=== PATIENT | female | born 1975 | race African-American/Black ===

== ENCOUNTER → 2016-03-27 | Outpatient (CLI) | payer BC, MEDICAID | LOC: RAD 11:27 | PROVIDERS: ATTEND Internal Medicine | DX: R06.02 Shortness of breath (principal); I71.01 Dissection of thoracic aorta | CPT/HCPCS: 71275; 82565 ==

== ENCOUNTER → 2016-03-27 | Outpatient (CLI) | payer BC, MEDICAID ==
[2016-03-27 13:14] LABS: ANION GAP 10 (5-19); BLOOD UREA NITROGEN 11 mg/dL (7-20); CALCIUM 9.6 mg/dL (8.4-10.2); CARBON DIOXIDE 27 mmol/L (22-30); CHLORIDE 107 mmol/L (98-107); CREATININE RESULT 0.64 mg/dL (0.52-1.25); GLUCOSE 86 mg/dL (75-110); POTASSIUM 3.8 mmol/L (3.6-5.0); SODIUM 144.4 mmol/L (137-145)
== END ==
LOC: LAB 12:30
PROVIDERS: ATTEND Internal Medicine
DX: R06.02 Shortness of breath (principal)
CPT/HCPCS: 36415; 80048

== ENCOUNTER → 2016-03-31 | Outpatient (CLI) | payer BC, MEDICAID | LOC: RAD 07:53 | PROVIDERS: ATTEND Surgery Vascular Surgery | DX: R06.02 Shortness of breath (principal); I71.8 Aortic aneurysm of unspecified site, ruptured | CPT/HCPCS: 74174 ==

== ENCOUNTER 2016-07-07 20:21 | Emergency (ER) | payer BC, MEDICAID ==
[2016-07-07] MEDS ORDERED: CLONIDINE HCL 0.2 MG TABLET PO ONE (20:33)
[2016-07-07] MEDS ORDERED: OXYCODONE-ACETAMINOPHEN 5-325 MG TABLET PO ONE (20:33)
--- NOTE | 2016-07-07 20:36 | ER Document Report ---
ED Cardiac - General Chief Complaint: Chest Pain Stated Complaint: CHEST PAIN WITH CARDIAC HISTORY Notes: The patient is a 40-year-old female, past medical history extensive aortic dissection 7 months ago with fenestration of the wall of the dissection at [facility], HTN, anxiety (on nightly Xanax), presents with 2 days of intermittent episodes of left anterior chest pain that is occurring in waves. She says the pain started after she had a bad dream that her dissection returned. She denies back pain, abdominal pain, nausea, vomiting, numbness, tingling, fevers or cough. TRAVEL OUTSIDE OF THE [place] IN LAST 30 DAYS: No - Related Data Allergies/Adverse Reactions: No Known Allergies Allergy (Unverified 01/07/16 14:18) Past Medical History - General Information source: Patient - Social History Smoking Status: Unknown if Ever Smoked Family History: Hypertension - Past Medical History Cardiac Medical History: Reports: Hx Heart Attack, Hx Hypertension Neurological Medical History: Reports: Hx Migraine Renal/ Medical History: Denies: Hx Peritoneal Dialysis GI Medical History: Reports: Hx Gastroesophageal Reflux Disease Past Surgical History: Reports: Hx Cardiac Surgery - aortic dissection repair , Hx Tonsillectomy - Immunizations Hx Diphtheria, Pertussis, Tetanus Vaccination: Yes - unk Review of Systems - Review of Systems Notes: REVIEW OF SYSTEMS: CONSTITUTIONAL: -fevers, -chills EENT: -eye pain, -difficulty swallowing, -nasal congestion CARDIOVASCULAR: +chest pain, -syncope RESPIRATORY: -cough, -SOB GASTROINTESTINAL: -abdominal pain, -nausea, -vomiting, -diarrhea GENITOURINARY: -dysuria, -hematuria MUSCULOSKELETAL: +back pain, -neck pain SKIN: -rash or skin lesions. HEMATOLOGIC: -easy bruising or bleeding. LYMPHATIC: -swollen, enlarged glands. NEUROLOGICAL: -altered mental status or loss of consciousness, -headache, - neurologic symptoms PSYCHIATRIC: -anxiety, -depression. ALL OTHER SYSTEMS REVIEWED AND NEGATIVE. Physical Exam - Vital signs Vitals: Temp Pulse Resp BP Pulse Ox 98.6 F 105 H 24 H 173/94 H 97 07/07/16 20:33 07/07/16 20:33 07/07/16 20:33 07/07/16 20:33 07/07/16 20:33 - Notes Notes: PHYSICAL EXAMINATION: GENERAL: Uncomfortable, in moderate distress HEAD: Atraumatic, normocephalic. EYES: Pupils equal round and reactive to light, extraocular movements intact, sclera anicteric, conjunctiva are normal. ENT: nares patent, oropharynx clear without exudates. Moist mucous membranes. NECK: Normal range of motion, supple without lymphadenopathy LUNGS: Breath sounds clear to auscultation bilaterally and equal. No wheezes rales or rhonchi. HEART: Tachycardic with harsh systolic murmur ABDOMEN: Soft, nontender, normoactive bowel sounds. No guarding, no rebound. No masses appreciated. EXTREMITIES: Normal range of motion, no pitting or edema. No cyanosis. NEUROLOGICAL: Cranial nerves grossly intact. Normal speech, normal gait. Normal sensory, motor, and reflex exams. SKIN: Warm, Dry, normal turgor, no rashes or lesions noted. PSYCH: Very anxious Course - Re-evaluation Re-evalutation: 07/07/16 21:21 Pt seen immediately on arrival to the ER. After IV access obtained, patient taken to CT scan emergently to assess for presence of worsening dissection. Spoke to radiologist and he says that there are no acute changes. Blood pressure obtained in all 4 extremities were similar and she has strong distal pulses in all 4 extremities. After Dilaudid, nitroglycerin, and morphine, patient still feeling chest pain. After Ativan, patient's chest pain completely resolved. She is asymptomatic. EKG does not show an acute ACS event and repeat EKG is unchanged. 2 sets of troponins were negative. Patient has a HEART score 3 (1 for risk factors, 2 for concerning story). CTA does not show PE. Offered patient admission, but she said she would like to go home because she has an appointment and fighting with her thoracic surgeon tomorrow morning. Given strict return precautions and she understands. - Vital Signs Vital signs: Temp Pulse Resp BP Pulse Ox 98.6 F 105 H 24 H 178/99 H 97 07/07/16 20:33 07/07/16 20:33 07/07/16 20:33 07/07/16 21:27 07/07/16 20:33 - Laboratory Result Diagrams: 07/07/16 20:49 07/07/16 21:15 Laboratory results interpreted by me: 07/07/16 07/07/16 20:49 21:15 Seg Neutrophils % 39.9 L Lymphocytes % 47.5 H AST 13 L - Diagnostic Test Radiology reviewed: Image reviewed, Reports reviewed Radiology results interpreted by me: CTA Chest/A/P: No acute findings. - EKG Interpretation by Me EKG shows normal: Sinus rhythm, [place], Intervals, QRS Complexes, ST-T Waves Rate: Normal Critical Care Note - Critical Care Note Total time excluding time spent on procedures (mins): 45 Discharge - Discharge Clinical Impression: Chest pain Qualifiers: Chest pain type: unspecified Qualified Code(s): R07.9 - Chest pain, unspecified Condition: Stable Additional Instructions: Your CAT scan does not show any evidence of a new aortic dissection or blood clots in your lungs. The blood tests looking at your heart and EKG were all normal and do not show any evidence of a heart attack at this time. You must follow-up with your primary care physician tomorrow for further evaluation and treatment. Return to the ER if you notice any worsening pain or any other concerns. CHEST PAIN OF UNCLEAR CAUSE: The exact cause of your chest pain isn't clear. Fortunately, there is no evidence of a dangerous medical condition. Further testing may be required to find the source of the pain. Most often, we find that this pain is coming from the chest wall -- the muscles or rib joints in the chest. But chest pain can come from the lung and lung lining, the esophagus, the heart valves or heart lining, and even the stomach or gallbladder. Rest. Eat lightly until the pain is gone. We may prescribe medicine for pain and inflammation. You should call the physician immediately if the pain radiates to the shoulder, jaw or arms; if you start to run a fever or develop a cough; or if you develop shortness of breath, or other new or alarming symptoms. NORMAL EXAM AND WORKUP: At this time, your examination and workup show no significant abnormality. No significant abnormal physical findings were noted. All laboratory, EKG, and imaging (x-ray, CT scans, ultrasound) studies that were ordered show no significant abnormality. Although your examination and all studies that were ordered showed no significant abnormal finding, there are no examinations and no studies that are 100% accurate. There is always the possibility that some abnormality could exist and not be detected with physical examination or within the limits and capabilities of laboratory and other studies. You should return or follow up as you were instructed on your visit today for further evaluation if your symptoms do not resolve. CHEST WALL PAIN: Your chest pain may be coming from the chest wall. This is often caused by straining the muscles or joints in the chest during physical activity, direct trauma, coughing, or vigorous vomiting. Persons with arthritis are especially prone to this type of pain, due to inflammation of the cartilage joints near the breast bone. Occasionally, no cause can be found. Rest from strenuous physical activity. This kind of chest pain is usually made worse by movement of the chest. Depending on the symptoms, we may prescribe medicine for pain, muscle relaxation, and antiinflammatory effects. If the pain is new, and seems to be due to muscle strain, cold packs can help. Otherwise, apply gentle warmth to the painful area for 15 minutes every hour or two. You should call contact the doctor immediately if things change. Further evaluation is needed if you develop a fever or cough, if the nature of the pain changes, or if you become short of breath. ANGINA EPISODE: Your physician has diagnosed the pain you experienced as an episode of angina. Angina occurs when a portion of the heart muscle temporarily lacks oxygen. It does not cause any permanent heart damage, but serves as a warning. Hospitalization is not necessary now. Evaluation of your cardiac condition , and medical therapy for angina will be necessary. It's important you be sure to keep all appointments and take medication exactly as prescribed. Angina is usually treated with a type of "nitrate" medication. This is available as ointment, pills, or sublingual (under the tongue) tablets. Depending on your clinical situation, other medications may be added to help control angina. These may include beta blockers or calcium blockers. If episodes of angina are occurring with increased frequency, or if chest pain lasts longer than 15 minutes or does not respond to nitroglycerin, you must seek emergency medical care immediately. FOLLOW-UP CARE: If you have been referred to a physician for follow-up care, call the physician s office for an appointment as you were instructed or within the next two days. If you experience worsening or a significant change in your symptoms, notify the physician immediately or return to the Emergency Department at any time for re-evaluation. Anxiety The physician feels that some of your health problems are being caused by anxiety. Anxiety affects your health in many ways. Anxiety alone can cause palpitations, sweats, chest pains, abdominal pains, shortness of breath, and headaches. It contributes to ulcer disease, high blood pressure, irritable bowel syndrome, and has been shown to cause flare-ups of many other diseases. Anxiety is not a simple disorder to treat. If the anxiety is due to recent life stresses, you may simply need time to "work through" the changes. If the anxiety is due to an underlying unhappiness with yourself or due to psychiatric disturbance, professional help will be needed. Your physician can refer you for further help if needed. Anti-anxiety medication is occasionally given if the stress is acute or if you are having trouble sleeping. Chronic or frequent use of these medications is not a good idea because the body becomes reliant on it, preventing you from dealing with life's normal stresses. Forms: Elevated Blood Pressure Referrals: AASHISH BASS MD [Primary Care Provider] - Follow up as needed
--- NOTE | 2016-07-07 20:41 | ER Document Report ---
ED Medical Screen (RME) - General Chief Complaint: Chest Pain Stated Complaint: CHEST PAIN WITH CARDIAC HISTORY Time seen by provider: 20:41 Mode of Arrival: Ambulatory Information source: Patient TRAVEL OUTSIDE OF THE [place] IN LAST 30 DAYS: No - HPI Patient complains to provider of: chest pain, shortness of breath Onset: Other - 2-3 days Onset/Duration: Persistent, Worse Quality of pain: Sharp, Stabbing Severity: Severe Pain Level: 5 Associated Symptoms: Shortness of breath Exacerbated by: Denies Relieved by: Denies Similar symptoms previously: Yes Recently seen / treated by doctor: Yes Notes: 07/07/16 20:41 Patient is a 40-year-old female with a history of aortic dissection in November 2015, who presents to the emergency room complaining of sharp stabbing left-sided chest pain which shortness of breath that started a few days ago and worsened today - Related Data Allergies/Adverse Reactions: No Known Allergies Allergy (Unverified 01/07/16 14:18) Past Medical History - Past Medical History Cardiac Medical History: Reports: Hx Heart Attack, Hx Hypertension Neurological Medical History: Reports: Hx Migraine Renal/ Medical History: Denies: Hx Peritoneal Dialysis GI Medical History: Reports: Hx Gastroesophageal Reflux Disease Past Surgical History: Reports: Hx Cardiac Surgery - aortic dissection repair , Hx Tonsillectomy - Immunizations Hx Diphtheria, Pertussis, Tetanus Vaccination: Yes - unk Physical Exam - Vital signs Vitals: Temp Pulse Resp BP Pulse Ox 98.6 F 105 H 24 H 173/94 H 97 07/07/16 20:33 07/07/16 20:33 07/07/16 20:33 07/07/16 20:33 07/07/16 20:33 Course - Vital Signs Vital signs: Temp Pulse Resp BP Pulse Ox 98.6 F 105 H 24 H 173/94 H 97 07/07/16 20:33 07/07/16 20:33 07/07/16 20:33 07/07/16 20:33 07/07/16 20:33
[2016-07-07] MEDS ORDERED: HYDROMORPHONE HCL INJ/PF 2 MG/ML AMPULE IV ONE (20:42)
[2016-07-07 20:59] LABS: ABSOLUTE EOSINOPHILS # (AUTO) 0.2 10^3/uL (0.0-0.6); ABSOLUTE LYMPHOCYTES (AUTO) 3.5 10^3/uL (0.5-4.7); ABSOLUTE MONOCYTES (AUTO) 0.7 10^3/uL (0.1-1.4); ABSOLUTE NEUT (AUTO) 2.9 10^3/uL (1.7-8.2); BASOPHILS % (AUTO) 0.6 % (0-2); EOSINOPHILS % (AUTO) 2.6 % (0-6); HEMATOCRIT 41.6 % (36.0-47.0); HEMOGLOBIN 14.3 g/dL (12.0-15.5); HGB HCT DIFFERENCE 1.3; LYMPHOCYTES % (AUTO) 47.5 % (13-45); MEAN CORPUSCULAR HEMOGLOBIN 30.1 pg (27.0-33.4); MEAN CORPUSCULAR HGB CONC 34.3 g/dL (32.0-36.0); MEAN CORPUSCULAR VOLUME 88 fl (80-97); MONOCYTES % (AUTO) 9.4 % (3-13); RED BLOOD COUNT 4.74 10^6/uL (3.72-5.28); RED CELL DISTRIBUTION WIDTH 13.9 % (11.5-14.0); SEGMENTED NEUTROPHILS % (AUTO) 39.9 % (42-78); WHITE BLOOD COUNT 7.3 10^3/uL (4.0-10.5)
[2016-07-07] MEDS ORDERED: NITROGLYCERIN 0.4 MG/TAB 25 TAB/BOTTLE ONE (21:09)
[2016-07-07] MEDS ORDERED: NITROGLYCERIN 0.4 MG/TAB 25 TAB/BOTTLE SL PRN (21:09)
[2016-07-07] MEDS ORDERED: MORPHINE SULFATE 10 MG/ML INJ IV ONE (21:31)
[2016-07-07 21:41] LABS: ALANINE AMINOTRANSFERASE 24 U/L (9-52); ALBUMIN 3.9 g/dL (3.5-5.0); ALKALINE PHOSPHATASE 63 U/L (38-126); ANION GAP 11 (5-19); ASPARTATE AMINO TRANSFERASE 13 U/L (14-36); BILIRUBIN,DIRECT 0.1 mg/dL (0.0-0.4); BILIRUBIN,TOTAL 0.3 mg/dL (0.2-1.3); BLOOD UREA NITROGEN 13 mg/dL (7-20); CARBON DIOXIDE 25 mmol/L (22-30); CHLORIDE 105 mmol/L (98-107); CREATINE KINASE 44 U/L (30-135); CREATININE RESULT 0.57 mg/dL (0.52-1.25); GLUCOSE 109 mg/dL (75-110); POTASSIUM 3.7 mmol/L (3.6-5.0); SODIUM 140.8 mmol/L (137-145); TOTAL PROTEIN 6.6 g/dL (6.3-8.2)
[2016-07-07 21:52] LABS: CREATINE KINASE MB < 0.22 ng/mL (<4.55); TROPONIN I < 0.012 ng/mL
[2016-07-07] MEDS ORDERED: LORAZEPAM INJ 2 MG/1 ML VIAL IV ONE (21:59)
[2016-07-08 00:32] VITALS: BP 123/76
--- NOTE | 2016-07-08 08:30 | EKG REPORT ---
SEVERITY:- ABNORMAL ECG - SINUS RHYTHM LEFT ATRIAL ABNORMALITY LEFT VENTRICULAR HYPERTROPHY BORDERLINE PROLONGED QT INTERVAL : Confirmed by: Henrietta Ross MD 08-Jul-2016 08:30:01
--- NOTE | 2016-07-08 08:30 | EKG REPORT ---
SEVERITY:- ABNORMAL ECG - SINUS RHYTHM LEFT ATRIAL ABNORMALITY : Confirmed by: Henrietta Ross MD 08-Jul-2016 08:30:07
== END 2016-07-08 00:41 | disposition home or self-care (01) ==
LOC: ER 20:21
DX: I71.01 Dissection of thoracic aorta (principal); R07.9 Chest pain, unspecified; R06.02 Shortness of breath; R00.0 Tachycardia, unspecified; I10 Essential (primary) hypertension; I25.2 Old myocardial infarction; F41.9 Anxiety disorder, unspecified; Z79.899 Other long term (current) drug therapy; Z98.890 Other specified postprocedural states
CPT/HCPCS: 93005; 99291; 96374; 96375; 36415; 82553; 82550; 85025; 80053; 84484; 71275; 74174; 93010; J2270; J1170; J2060

== ENCOUNTER 2016-08-26 11:26 | Emergency (ER) | payer BC ==
--- NOTE | 2016-08-26 11:49 | ER Document Report ---
ED Syncope and Near Syncope - General Chief Complaint: Passed Out Prior to Arrival Stated Complaint: POSSIBLE SYNCOPE Time Seen by Provider: 08/26/16 11:44 Mode of Arrival: Medic Information source: Patient, Emergency Med Personnel Notes: This is a 40-year-old female with aortic dissection repair December 2015 at [facility] who presents with syncopal episode. She states she had a generalized bad feeling all over developed nausea and diaphoresis then passed out. Denies any injury. No recent medication changes. Reports chest pain though tells me she always has chest pain that never completely goes away. Denies presyncopal palpitations or other symptoms otherwise. No recent illness, fever, cough or cold symptoms. Denies dysuria. Continues with nausea at this point. TRAVEL OUTSIDE OF THE [place] IN LAST 30 DAYS: No - Related Data Allergies/Adverse Reactions: No Known Allergies Allergy (Verified 08/26/16 11:58) Past Medical History - Social History Smoking Status: Never Smoker Family History: Hypertension, Other - Aortic aneurysm Patient has suicidal ideation: No Patient has homicidal ideation: No - Past Medical History Cardiac Medical History: Reports: Hx Heart Attack, Hx Hypertension Neurological Medical History: Reports: Hx Migraine Renal/ Medical History: Denies: Hx Peritoneal Dialysis GI Medical History: Reports: Hx Gastroesophageal Reflux Disease Past Surgical History: Reports: Hx Cardiac Surgery - aortic dissection repair , Hx Tonsillectomy - Immunizations Hx Diphtheria, Pertussis, Tetanus Vaccination: Yes - unk Review of Systems - Review of Systems -: Yes All other systems reviewed and negative Physical Exam - Vital signs Vitals: Temp 98.5 F 08/26/16 11:34 Interpretation: Hypertensive - Notes Notes: Physical Exam: GENERAL: VS as per nursing doc. Well-appearing, well-nourished and in no acute distress. HEAD: Atraumatic, normocephalic. EYES: Pupils equal round and reactive to light, extraocular movements intact, sclera anicteric, no conjunctival injection or discharge. ENT: Nares patent, oropharynx clear without exudates. Moist mucous membranes. NECK: Normal range of motion, supple without lymphadenopathy. LUNGS: Breath sounds clear to auscultation bilaterally and equal. No wheezes rales or rhonchi. HEART: Normal S1S2. Regular rate and rhythm with murmur noted radiating to the carotids more on the right. Equal peripheral pulses. ABDOMEN: Soft, non-tender EXTREMITIES: Normal range of motion. No calf tenderness. Negative [place] NEUROLOGICAL: Cranial nerves grossly intact. Normal speech. Normal sensory and motor exams. No gross cerebellar abnormalities. PSYCH: Normal mood, normal affect. SKIN: Warm, dry, no cyanosis, no splinter hemorrhages. Cap refill < 2 sec. Course - Re-evaluation Re-evalutation: 08/26/16 15:45 Discussed findings and diagnostic studies up to this point with the patient. She has a headache so we will treat her symptoms. They have been having difficulty obtaining IV for the CTA. We will continue attempting with ultrasound. She appears in no distress during my discussion. 08/26/16 18:14 President Tres Rodriguez [facility] 08/26/16 19:32 Patient continues to complain of headache. This seems somewhat unusual for her so we will go on and complete a CT scan of her head. She requests to follow-up with her judo teacher via transfer today. I spoke with Dr. Hooper with vascular surgery at [facility] and discussed the CT scan. He did not think that was significant. She had just seen his partner yesterday who recommended further cardiac evaluation. 08/26/16 19:37 Discussed patient's wish to be transferred to [facility] where her judo teacher is located. 19:42 discussed with the hospitalist Dr. Hernandez. He is not aware of Dr. Hoover being a judo teacher associated with [facility] 19:[address] Palmer here. He is unaware of Dr. Hoover as well. 19:55 I spoke with [facility] transfer center.they were initially care of Dr. Hoover but we found him in a [facility] Internet directory. I spoke with Dr. Hernandez who will accept the patient. She is #1 on the wait list and they will admit the patient when a bed becomes available. Head CT and repeat troponin are pending. 08/26/16 20:17 The patient had requested to go where her judo teacher is. He had done her last echocardiogram and they were discussing coronary angiography as well. CT of the head is pending at this point a repeat troponin as well. Patient requested transfer despite a risk and benefit discussion understanding we have services here that could provide cardiac evaluation further for her. 08/27/16 15:39 I reevaluated the patient and her headache has resolved. Her head CT was negative as well as her repeat troponin. She is feeling back to baseline at this point. A bed had not become available. She no longer wants transfer and wants discharge. I spoke with Dr. Hoover and he will see her tomorrow at 4 PM here at the [place] office. 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 She understands risks and will follow-up tomorrow without fail. - Vital Signs Vital signs: Temp Pulse Resp BP Pulse Ox 98.0 F 61 21 H 148/87 H 95 08/27/16 12:39 08/26/16 12:44 08/27/16 15:01 08/27/16 15:01 08/27/16 15:01 - Laboratory Result Diagrams: 08/26/16 13:47 08/26/16 13:47 Laboratory results interpreted by me: 08/26/16 13:47 AST 12 L - Diagnostic Test Radiology reviewed: Image reviewed, Reports reviewed - NAD - EKG Interpretation by Me EKG shows normal: Sinus rhythm Rate: Bradycardia - Rate 59 sinus bradycardia with possible left atrial enlargement, No clear ischemia, Discharge - Discharge Clinical Impression: Syncope and collapse, Chest pain, History of aortic dissection Condition: Fair Disposition: [facility] Additional Instructions: Return for worsening or concern. Follow-up tomorrow with Dr. Hoover at 4 PM without fail. Referrals: AASHISH BASS MD [Primary Care Provider] - Follow up as needed TRES HOOVER MD [[facility]] - Follow up tomorrow (Tomorrow at 4pm )
[2016-08-26] MEDS ORDERED: ONDANSETRON HCL INJ/PF 4 MG/2 ML SDV IV ONE ×2 (11:51→15:41)
[2016-08-26] MEDS ORDERED: NORMAL SALINE 1000 ML 500 ML IV ONE (11:51)
--- NOTE | 2016-08-26 12:34 | RADIOLOGY REPORT (SQ) ---
EXAM DESCRIPTION: CHEST SINGLE VIEW COMPLETED DATE/TIME: 08/26/2016 12:22 pm REASON FOR STUDY: Syncope, CP COMPARISON: 01/24/2016 EXAM PARAMETERS: NUMBER OF VIEWS: One view. TECHNIQUE: Single frontal radiographic view of the chest acquired. RADIATION DOSE: NA LIMITATIONS: None. FINDINGS: LUNGS AND PLEURA: No opacities, masses or pneumothorax. No pleural effusion. MEDIASTINUM AND HILAR STRUCTURES: No masses. Contour normal. HEART AND VASCULAR STRUCTURES: Heart normal in size. Normal vasculature. BONES: No acute findings. HARDWARE: Sternotomy wires OTHER: No other significant finding. IMPRESSION: NO ACUTE RADIOGRAPHIC FINDING IN THE CHEST. TECHNICAL DOCUMENTATION: JOB ID: [id number]
[2016-08-26 13:56] LABS: ABSOLUTE EOSINOPHILS # (AUTO) 0.1 10^3/uL (0.0-0.6); ABSOLUTE LYMPHOCYTES (AUTO) 1.8 10^3/uL (0.5-4.7); ABSOLUTE MONOCYTES (AUTO) 0.4 10^3/uL (0.1-1.4); ABSOLUTE NEUT (AUTO) 2.8 10^3/uL (1.7-8.2); BASOPHILS % (AUTO) 0.5 % (0-2); EOSINOPHILS % (AUTO) 1.7 % (0-6); HEMATOCRIT 44.6 % (36.0-47.0); HEMOGLOBIN 14.8 g/dL (12.0-15.5); HGB HCT DIFFERENCE -0.2; LYMPHOCYTES % (AUTO) 34.9 % (13-45); MEAN CORPUSCULAR HEMOGLOBIN 29.3 pg (27.0-33.4); MEAN CORPUSCULAR HGB CONC 33.1 g/dL (32.0-36.0); MEAN CORPUSCULAR VOLUME 89 fl (80-97); MONOCYTES % (AUTO) 8.4 % (3-13); RED BLOOD COUNT 5.04 10^6/uL (3.72-5.28); RED CELL DISTRIBUTION WIDTH 13.4 % (11.5-14.0); SEGMENTED NEUTROPHILS % (AUTO) 54.5 % (42-78); WHITE BLOOD COUNT 5.1 10^3/uL (4.0-10.5)
[2016-08-26 14:03] LABS: PROTHROMBIN TIME 13.3 SEC (11.4-15.4)
[2016-08-26 14:17] LABS: ALANINE AMINOTRANSFERASE 27 U/L (9-52); ALBUMIN 4.3 g/dL (3.5-5.0); ALKALINE PHOSPHATASE 82 U/L (38-126); ANION GAP 12 (5-19); ASPARTATE AMINO TRANSFERASE 12 U/L (14-36); BILIRUBIN,DIRECT 0.2 mg/dL (0.0-0.4); BILIRUBIN,TOTAL 0.6 mg/dL (0.2-1.3); BLOOD UREA NITROGEN 15 mg/dL (7-20); CALCIUM 9.1 mg/dL (8.4-10.2); CARBON DIOXIDE 24 mmol/L (22-30); CHLORIDE 105 mmol/L (98-107); CREATINE KINASE 50 U/L (30-135); CREATININE RESULT 0.63 mg/dL (0.52-1.25); GLUCOSE 93 mg/dL (75-110); SODIUM 141.1 mmol/L (137-145); TOTAL PROTEIN 7.7 g/dL (6.3-8.2)
[2016-08-26 14:31] LABS: CREATINE KINASE MB < 0.22 ng/mL (<4.55); TROPONIN I < 0.012 ng/mL
[2016-08-26] MEDS ORDERED: MORPHINE SULFATE 10 MG/ML INJ IV ONE (15:41)
--- NOTE | 2016-08-26 16:19 | EKG REPORT ---
SEVERITY:- ABNORMAL ECG - SINUS RHYTHM LEFT ATRIAL ABNORMALITY : Confirmed by: Henrietta Ross MD 26-Aug-2016 16:18:55
[2016-08-26] MEDS ORDERED: HYDROCODONE/ACETAMINOPHEN 5-325 MG TABLET PO ONE (17:31)
--- NOTE | 2016-08-26 18:45 | RADIOLOGY REPORT (SQ) ---
EXAM DESCRIPTION: CTA CHEST COMPLETED DATE/TIME: 08/26/2016 6:18 pm REASON FOR STUDY: Eval dissection/CP/GFR Pending COMPARISON: July 07 2016 TECHNIQUE: CT scan of the chest performed using helical scanning technique with dynamic intravenous contrast injection. Images reviewed with lung, soft tissue and bone windows. Reconstructed coronal and sagittal MPR images reviewed. Additional 3 dimensional post-processing performed to develop Maximal Intensity Projection images (VA P). All images stored on PACS. All CT scanners at this facility use dose modulation, iterative reconstruction, and/or weight based d osing when appropriate to reduce radiation dose to as low as reasonably achievable (ALARA). [facility]: Dose Right [facility]: CareDose [facility]: Dose Right [facility]: Teradose 4D [facility]: [employer] CONTRAST TYPE AND DOSE: 76 mL Isovue 370- low osmolar. RENAL FUNCTION: Creatinine 0.6 BUN 15 RADIATION DOSE: 42.95 mGy. LIMITATIONS: The aorta is not optimally opacified. FINDINGS: LUNGS AND PLEURA: No masses, infiltrates, pneumothorax. No pleural effusions, calcificati ons. AORTA AND GREAT VESSELS: There is an aneurysm of the aorta that begins at the brachiocephalic trunk a nd extends through the descending aorta into the abdomen. A very small opacified residual lumen is p resent in the descending aorta, smaller than on the prior study. The largest portion of the head [place] cending aorta is poorly opacified. In the upper abdomen, there is improved opacification in this seg ment of the aorta, possibly from below. HEART: No pericardial effusion. PULMONARY ARTERIES: No emboli visualized in the main pulmonary arteries or the segmental branches. HILAR AND MEDIASTINAL STRUCTURES: No identified masses or abnormal nodes. HARDWARE: None in the chest. UPPER ABDOMEN: The celiac artery and left renal artery appear to arise from the more poorly opacified segment of the aorta, or false lumen. The superior mesenteric artery and the right renal artery sha se from the better opacified segment of aorta, or true lumen. THYROID AND OTHER SOFT TISSUES: No masses. No adenopathy. BONES: No acute or significant finding. 3D MIPS: Confirm above findings. OTHER: No other significant finding. IMPRESSION: Aortic dissection as described. The true lumen is significantly narrower than on earlie r study. Origins of the abdominal arteries as described. TECHNICAL DOCUMENTATION: JOB ID: [id number] Quality ID # [id number]: Final reports with documentation of one or more dose reduction techniques (e.g., Au tomated exposure control, adjustment of the mA and/or kV according to patient size, use of iterative reconstruction technique) 2010 [email or web address]- All Rights Reserved
[2016-08-26] MEDS ORDERED: HYDROMORPHONE HCL INJ/PF 2 MG/ML AMPULE IV ONE (19:31)
--- NOTE | 2016-08-26 20:53 | RADIOLOGY REPORT (SQ) ---
EXAM DESCRIPTION: CT HEAD WITHOUT COMPLETED DATE/TIME: 08/26/2016 8:19 pm REASON FOR STUDY: DAILEY COMPARISON: None. TECHNIQUE: Axial images acquired through the brain without intravenous contrast. Images reviewed wi th bone, brain and subdural windows. Images stored on PACS. All CT scanners at this facility use dose modulation, iterative reconstruction, and/or weight based d osing when appropriate to reduce radiation dose to as low as reasonably achievable (ALARA). [facility]: Dose Right [facility]: CareDose [facility]: Dose Right [facility]: Teradose 4D [facility]: [employer] RADIATION DOSE: 64.61 mGy. LIMITATIONS: None. FINDINGS: VENTRICLES: Normal size and contour. CEREBRUM: No masses. No hemorrhage. No midline shift. Normal al/white matter differentiation. N o evidence for acute infarction. CEREBELLUM: No masses. No hemorrhage. No alteration of density. No evidence for acute infarction. EXTRAAXIAL SPACES: No fluid collections. No masses. ORBITS AND GLOBE: No intra- or extraconal masses. Normal contour of globe without masses. CALVARIUM: No fracture. PARANASAL SINUSES: No fluid or mucosal thickening. SOFT TISSUES: No mass or hematoma. OTHER: No other significant finding. IMPRESSION: No acute intracranial findings. TECHNICAL DOCUMENTATION: JOB ID: [id number] Quality ID # [id number]: Final reports with documentation of one or more dose reduction techniques (e.g., Au tomated exposure control, adjustment of the mA and/or kV according to patient size, use of iterative reconstruction technique) 2010 [employer]- All Rights Reserved
[2016-08-27] MEDS ORDERED: PROCHLORPERAZINE EDISYLATE INJ 10 MG/2 ML VIAL IV ONE (00:41)
[2016-08-27] MEDS ORDERED: DIPHENHYDRAMINE HCL 50 MG/ML VIAL IV ONE (00:41)
--- NOTE | 2016-08-27 06:30 | ER Document Report ---
Doctor's Note Notes: 08/27/16 06:28 Patient signed out to me at [address] Alas pending transfer. Dr. Carrillo had initially seen and evaluated the patient with chest pain he did a CTA of the chest which showed an aneurysm of the aorta that begins at the brachiocephalic trunk and extends to the descending aorta into the abdomen with an impression of aortic dissection so spoke with the receiving facility where she also has her supervisor concrete stone fabricating care. She spoke with a thoracic surgeon there and stated that they did not need to be immediately transferred for emergent surgery however the patient was accepted by their facility and her supervisor concrete stone fabricating. I examined her this morning her vital signs are stable with a blood pressure 159/79 heart rate of 80 respiratory rate of 2197% on room air. She is awake alert talkative in no acute distress heart rate and rhythm is regular lungs clear to station bilaterally no wheezes rales rhonchi abdomen soft no tenderness guarding rebound or rigidity. Her EKG showed reviewed shows sinus rhythm at 59 bpm with no acute ST segment elevation or depression. I am obtaining an additional EKG and troponin level.
--- NOTE | 2016-08-27 12:48 | ER Document Report ---
Doctor's Note Notes: 08/27/16 12:48 Asked nursing information systems coordinator to call and check on bed status at [facility] received a phone call back from Dr. Hoover her quality technician fiberglass up there. He states he knows the patient very well she has chronic chest pain he is reading her CT scan and she has a chronic dissection as well his only concern is that it same the lumen is narrow. At this point he is going to contact the cardiothoracic surgeon and call me back. Has persistent stable vital signs.
[2016-08-27 16:00] VITALS: BP 146/99
== END 2016-08-27 16:01 | disposition short-term general hospital (02) ==
LOC: ER 11:26
DX: I71.03 Dissection of thoracoabdominal aorta (principal); R07.9 Chest pain, unspecified; R51 Headache; R55 Syncope and collapse; R11.0 Nausea; R00.1 Bradycardia, unspecified; I25.2 Old myocardial infarction; I10 Essential (primary) hypertension; Z98.890 Other specified postprocedural states; Z82.49 Family history of ischemic heart disease and other diseases of the circulatory system
CPT/HCPCS: 93005; 96376; 99285; 96361; 96374; 96375; 36415; 82553; 82550; 85025; 85610; 80053; 84484; 71010; 70450; 71275; 93010; J1200; J2270; J1170; J0780; J2405; J7030

== ENCOUNTER 2017-01-18 16:25 | Emergency (ER) | payer BC ==
--- NOTE | 2017-01-18 17:35 | ER Document Report ---
ED Medical Screen (RME) - General Chief Complaint: Lower Abdominal Pain Stated Complaint: ABDOMINAL PAIN Time Seen by Provider: 01/18/17 17:32 Notes: Patient states she had a aortic dissection repaired at [facility] last year. States for 1 week she has been having abdominal pain that radiates into her lower back. She states that it started after gagging but has not gone away. She denies any other significant symptoms. She states she called her surgeon's today at [facility] and the instructed to come to the emergency department. TRAVEL OUTSIDE OF THE [place] IN LAST 30 DAYS: No - Related Data Allergies/Adverse Reactions: No Known Allergies Allergy (Verified 01/18/17 16:59) Past Medical History - Past Medical History Cardiac Medical History: Reports: Hx Heart Attack, Hx Hypertension Neurological Medical History: Reports: Hx Migraine Renal/ Medical History: Denies: Hx Peritoneal Dialysis GI Medical History: Reports: Hx Gastroesophageal Reflux Disease Past Surgical History: Reports: Hx Cardiac Surgery - aortic dissection repair , Hx Tonsillectomy - Immunizations Hx Diphtheria, Pertussis, Tetanus Vaccination: Yes - unk Physical Exam - Vital signs Vitals: Temp Pulse Resp BP Pulse Ox 98.5 F 65 18 149/73 H 97 01/18/17 16:57 01/18/17 16:57 01/18/17 16:57 01/18/17 16:57 01/18/17 16:57 Course - Vital Signs Vital signs: Temp Pulse Resp BP Pulse Ox 98.5 F 66 18 149/73 H 96 01/18/17 16:59 01/18/17 16:59 01/18/17 16:59 01/18/17 16:59 01/18/17 16:59
[2017-01-18 18:29] LABS: APPEARANCE,URINE SLIGHTLY-CLOUDY; BILIRUBIN,URINE NEGATIVE (NEGATIVE); GLUCOSE, URINE NEGATIVE (NEGATIVE); KETONES,URINE NEGATIVE (NEGATIVE); LEUKOCYTE ESTERASE,URINE NEGATIVE (NEGATIVE); NITRITE,URINE NEGATIVE (NEGATIVE); PROTEIN,URINE NEGATIVE (NEGATIVE); URINE SPECIFIC GRAVITY 1.021
[2017-01-18 18:44] LABS: ABSOLUTE EOSINOPHILS # (AUTO) 0.2 10^3/uL (0.0-0.6); ABSOLUTE MONOCYTES (AUTO) 0.6 10^3/uL (0.1-1.4); ABSOLUTE NEUT (AUTO) 2.4 10^3/uL (1.7-8.2); BASOPHILS % (AUTO) 0.6 % (0-2); EOSINOPHILS % (AUTO) 2.8 % (0-6); HEMATOCRIT 43.3 % (36.0-47.0); HEMOGLOBIN 14.8 g/dL (12.0-15.5); HGB HCT DIFFERENCE 1.1; LYMPHOCYTES % (AUTO) 48.1 % (13-45); MEAN CORPUSCULAR HEMOGLOBIN 30.4 pg (27.0-33.4); MEAN CORPUSCULAR HGB CONC 34.2 g/dL (32.0-36.0); MEAN CORPUSCULAR VOLUME 89 fl (80-97); MONOCYTES % (AUTO) 10.2 % (3-13); RED BLOOD COUNT 4.87 10^6/uL (3.72-5.28); RED CELL DISTRIBUTION WIDTH 13.9 % (11.5-14.0); SEGMENTED NEUTROPHILS % (AUTO) 38.3 % (42-78); WHITE BLOOD COUNT 6.3 10^3/uL (4.0-10.5)
[2017-01-18 19:04] LABS: ALANINE AMINOTRANSFERASE 23 U/L (9-52); ALBUMIN 4.7 g/dL (3.5-5.0); ALKALINE PHOSPHATASE 75 U/L (38-126); ANION GAP 13 (5-19); ASPARTATE AMINO TRANSFERASE 20 U/L (14-36); BILIRUBIN,DIRECT 0.3 mg/dL (0.0-0.4); BILIRUBIN,TOTAL 0.4 mg/dL (0.2-1.3); BLOOD UREA NITROGEN 17 mg/dL (7-20); CALCIUM 9.2 mg/dL (8.4-10.2); CARBON DIOXIDE 23 mmol/L (22-30); CHLORIDE 108 mmol/L (98-107); CREATININE RESULT 0.66 mg/dL (0.52-1.25); GLUCOSE 90 mg/dL (75-110); SODIUM 143.9 mmol/L (137-145); TOTAL PROTEIN 8.3 g/dL (6.3-8.2)
[2017-01-18] MEDS ORDERED: OXYCODONE-ACETAMINOPHEN 5-325 MG TABLET PO ONE (19:31)
--- NOTE | 2017-01-18 20:17 | ER Document Report ---
ED GI/ - General Chief Complaint: Lower Abdominal Pain Stated Complaint: ABDOMINAL PAIN Time Seen by Provider: 01/18/17 17:32 Mode of Arrival: Ambulatory Information source: Patient Notes: Patient presents complaining of left lower quadrant pain that radiates to her lower back for the past week. Patient states that a week ago she was brushing her teeth, gagged and then developed this left lower pelvic pain. Patient denies any urinary symptoms, nausea, vomiting or diarrhea. Patient denies any vaginal bleeding or discharge. Last bowel movement was Wednesday. Patient does report a history of aortic dissection and was concerned about this today. Patient denies any chest pain, lightheadedness. TRAVEL OUTSIDE OF THE [place] IN LAST 30 DAYS: No - HPI Patient complains to provider of: Pelvic pain. No: Diarrhea Onset: Last week Timing/Duration: Persistent Quality of pain: Sharp Pain Level: 4 Location: LLQ, Left flank Vaginal bleeding (Compared to normal period): None Associated symptoms: denies: Chest pain, Dizzy, Dysuria, Fever, Loss of appetite , Nausea, Urinary hesitancy, Urinary frequency, Urinary retention, Vaginal discharge, Vomiting Exacerbated by: Denies Relieved by: Denies Similar symptoms previously: No Recently seen / treated by doctor: No - Related Data Allergies/Adverse Reactions: No Known Allergies Allergy (Verified 01/18/17 16:59) Past Medical History - General Information source: Patient - Social History Smoking Status: Never Smoker Frequency of alcohol use: Occasional Drug Abuse: None Occupation: assistant property manager Family History: Hypertension, Other - Aortic dissection Patient has suicidal ideation: No Patient has homicidal ideation: No - Past Medical History Cardiac Medical History: Reports: Hx Heart Attack, Hx Hypertension Neurological Medical History: Reports: Hx Migraine Renal/ Medical History: Denies: Hx Peritoneal Dialysis GI Medical History: Reports: Hx Gastroesophageal Reflux Disease Past Surgical History: Reports: Hx Cardiac Surgery - aortic dissection repair , Hx Tonsillectomy - Immunizations Hx Diphtheria, Pertussis, Tetanus Vaccination: Yes - unk Review of Systems - Review of Systems Constitutional: No symptoms reported. denies: Fever, Recent illness EENT: No symptoms reported Cardiovascular: No symptoms reported. denies: Chest pain, Dizziness, Lightheaded Respiratory: No symptoms reported. denies: Cough, Short of breath Gastrointestinal: Abdominal pain. denies: Diarrhea, Nausea, Vomiting Genitourinary: Flank pain. denies: Dysuria Female Genitourinary: No symptoms reported Musculoskeletal: Back pain Skin: No symptoms reported Hematologic/Lymphatic: No symptoms reported Neurological/Psychological: No symptoms reported Physical Exam - Vital signs Vitals: Temp Pulse Resp BP Pulse Ox 98.5 F 65 18 149/73 H 97 01/18/17 16:57 01/18/17 16:57 01/18/17 16:57 01/18/17 16:57 01/18/17 16:57 - General General appearance: Appears well, Alert In distress: None - HEENT Head: Normocephalic Conjunctiva: Normal Nasal: Normal Mouth/Lips: Normal Mucous membranes: Normal Neck: Normal, Supple. No: Lymphadenopathy - Respiratory Respiratory status: No respiratory distress Chest status: Nontender Breath sounds: Normal. No: Rales, Rhonchi, Stridor, Wheezing Chest palpation: Normal - Cardiovascular Rhythm: Regular Heart sounds: S1 appreciated, S2 appreciated Murmur: No Pulses: Normal: Radial, Dorsalis pedis - Abdominal Inspection: Normal Distension: No distension Bowel sounds: Normal Tenderness: Tender - left lower pelvic. No: Guarding, Rebound Organomegaly: No organomegaly. No: Mass - Genitourinary External exam: Normal Speculum exam: Cervix closed, Vaginal discharge Vaginal bleeding: None Bimanuel exam: Adnexal tenderness - left - Back Back: Normal, Tender - lower lumbar paraspinal tenderness. No: CVA tenderness, Vertebra tenderness - Extremities General upper extremity: Normal inspection, Nontender, Normal ROM General lower extremity: Normal inspection, Nontender, Normal ROM - Neurological Neuro grossly intact: Yes Cognition: Normal Orientation: AAOx4 Aj Coma Scale Eye Opening: Spontaneous Aj Coma Scale Verbal: Oriented Aj Coma Scale Motor: Obeys Commands Aj Coma Scale Total: 15 - Psychological Associated symptoms: Normal affect, Normal mood - Skin Skin Temperature: Warm Skin Moisture: Dry Skin Color: Normal Course - Re-evaluation Re-evalutation: 01/18/17 22:[address] findings. Patient complains of continued pain and requesting additional medicine. Patient has been eating and drinking. Patient advised that she needs to not have anything additional to eat. 01/19/17 00:07 Reviewed patient's diagnostic tests with her and discussed worsening symptoms that patient should return immediately for. Patient without any evidence concerning for torsion or TOA. No concern for aortic dissection. Patient looks comfortable on examination. Patient tolerating oral fluids without emesis. - Vital Signs Vital signs: Temp Pulse Resp BP Pulse Ox 98.3 F 77 18 148/82 H 98 01/18/17 22:13 01/19/17 00:43 01/19/17 00:43 01/19/17 00:43 01/19/17 00:43 - Laboratory Result Diagrams: 01/18/17 18:25 01/18/17 18:25 Laboratory results interpreted by me: 01/18/17 01/18/17 01/18/17 18:10 18:25 18:25 Seg Neutrophils % 38.3 L Lymphocytes % 48.1 H Chloride 108 H Total Protein 8.3 H Urine Urobilinogen 2.0 H 01/19/17 00:07 Labs- Entire Visit 01/18/17 01/18/17 01/18/17 18:10 18:25 18:25 WBC 6.3 RBC 4.87 Hgb 14.8 Hct 43.3 MCV 89 MCH 30.4 MCHC 34.2 RDW 13.9 Plt Count 262 Seg Neutrophils % 38.3 L Lymphocytes % 48.1 H Monocytes % 10.2 Eosinophils % 2.8 Basophils % 0.6 Absolute Neutrophils 2.4 Absolute Lymphocytes 3.0 Absolute Monocytes 0.6 Absolute Eosinophils 0.2 Absolute Basophils 0.0 Sodium 143.9 Potassium 4.0 Chloride 108 H Carbon Dioxide 23 Anion Gap 13 BUN 17 Creatinine 0.66 Est GFR ( Amer) > 60 Est GFR (Non-Af Amer) > 60 Glucose 90 Calcium 9.2 Total Bilirubin 0.4 Direct Bilirubin 0.3 Indirect Bilirubin Not Reportable Neonat Total Bilirubin Not Reportable AST 20 ALT 23 Alkaline Phosphatase 75 Total Protein 8.3 H Albumin 4.7 Urine Color YELLOW Urine Appearance SLIGHTLY-CLOUDY Urine pH 6.0 Ur Specific [place] 1.021 Urine Protein NEGATIVE Urine Glucose (UA) NEGATIVE Urine Ketones NEGATIVE Urine Blood NEGATIVE Urine Nitrite NEGATIVE Urine Bilirubin NEGATIVE Urine Urobilinogen 2.0 H Ur Leukocyte Esterase NEGATIVE Urine WBC (Auto) 1 Urine RBC (Auto) 1 Squamous Epi Cells Auto 2 Urine Mucus (Auto) RARE Urine Ascorbic Acid NEGATIVE Urine HCG, Qual NEGATIVE Trichomonas (Wet Prep) Vaginal WBC Vaginal Yeast Chlamydia DNA (PCR) N.gonorrhoeae DNA (PCR) 01/18/17 01/18/17 20:15 20:15 WBC RBC Hgb Hct MCV MCH MCHC RDW Plt Count Seg Neutrophils % Lymphocytes % Monocytes % Eosinophils % Basophils % Absolute Neutrophils Absolute Lymphocytes Absolute Monocytes Absolute Eosinophils Absolute Basophils Sodium Potassium Chloride Carbon Dioxide Anion Gap BUN Creatinine Est GFR ( Amer) Est GFR (Non-Af Amer) Glucose Calcium Total Bilirubin Direct Bilirubin Indirect Bilirubin Neonat Total Bilirubin AST ALT Alkaline Phosphatase Total Protein Albumin Urine Color Urine Appearance Urine pH Ur Specific [place] Urine Protein Urine Glucose (UA) Urine Ketones Urine Blood Urine Nitrite Urine Bilirubin Urine Urobilinogen Ur Leukocyte Esterase Urine WBC (Auto) Urine RBC (Auto) Squamous Epi Cells Auto Urine Mucus (Auto) Urine Ascorbic Acid Urine HCG, Qual Trichomonas (Wet Prep) NO TRICHOMONAS SEEN Vaginal WBC RARE WBCS SEEN Vaginal Yeast NO YEAST SEEN Chlamydia DNA (PCR) NOT DETECTED N.gonorrhoeae DNA (PCR) NOT DETECTED - Diagnostic Test Radiology reviewed: Reports reviewed Discharge - Discharge Clinical Impression: Hx of essential hypertension, Pelvic pain Ovarian cyst Qualifiers: Laterality: left Qualified Code(s): N83.202 - Unspecified ovarian cyst, left side Condition: Stable Disposition: HOME, SELF-CARE Instructions: Oral Narcotic Medication ([facility]), Ovarian Cyst ([facility]) Additional Instructions: Return immediately for any new or worsening symptoms Followup with your primary care provider, call tomorrow to make a followup appointment Follow-up with your micropaleontologist for further evaluation Prescriptions: Oxycodone HCl/Acetaminophen [Percocet 5-325 mg Tablet] 1 tab PO ASDIR PRN #12 tablet PRN Reason: Forms: Elevated Blood Pressure Referrals: AASHISH BASS MD [Primary Care Provider] - Follow up as needed LUCA GOODEN MD [EMERITUS] - Follow up tomorrow
--- NOTE | 2017-01-18 20:51 | RADIOLOGY REPORT (SQ) ---
EXAM DESCRIPTION: CT ABD/PELVIS WITH IV ONLY COMPLETED DATE/TIME: 01/18/2017 8:25 pm REASON FOR STUDY: LLQ Pain, hx dissection COMPARISON: CTA of the abdomen and pelvis dated June 2016 TECHNIQUE: CT scan of the abdomen and pelvis performed using helical scanning technique with dynamic intravenous contrast injection. No oral contrast. Images reviewed with lung, soft tissue, and bone windows. Reconstructed coronal and sagittal MPR images reviewed. Delayed images for evaluation of the urinary system also acquired. All images stored on PACS. All CT scanners at this facility use dose modulation, iterative reconstruction, and/or weight based d osing when appropriate to reduce radiation dose to as low as reasonably achievable (ALARA). [facility]: Dose Right [facility]: CareDose [facility]: Dose Right [facility]: Teradose 4D [facility]: Categorical CONTRAST TYPE AND DOSE: contrast/concentration: Isovue 370.00 mg/ml; Total Contrast Delivered: 100.0 ml; Total Saline Delivered: 40.0 ml RENAL FUNCTION: None required. The patient is less than 50 years old. RADIATION DOSE: Up-to-date CT equipment and radiation dose reduction techniques were employed. CTDIv ol: 17.7 - 20.2 mGy. DLP: 1797 mGy-cm.. LIMITATIONS: None. FINDINGS: LOWER CHEST: No significant findings. No nodules or infiltrates. LIVER: Normal size. No masses. No dilated ducts. SPLEEN: Normal size. No focal lesions. PANCREAS: No masses. No significant calcifications. No adjacent inflammation or peripancreatic fluid collections. Pancreatic duct not dilated. GALLBLADDER: No identified stones by CT criteria. No inflammatory changes to suggest cholecystitis. ADRENAL GLANDS: No significant masses or asymmetry. RIGHT KIDNEY AND URETER: No solid masses. Small renal cyst is again identified. No significant calc ifications. No hydronephrosis or hydroureter. LEFT KIDNEY AND URETER: No solid masses. No significant calcifications. No hydronephrosis or hydr oureter. AORTA AND VESSELS: The previously described aortic dissection extending the entire length of the abdo margot aorta and into the left common iliac artery is again identified and appears unchanged. Renal ar teries, SMA, celiac without stenosis. RETROPERITONEUM: No retroperitoneal adenopathy, hemorrhage or masses. BOWEL AND PERITONEAL CAVITY: No masses or inflammatory changes. No free fluid or peritoneal masses. APPENDIX: Not identified PELVIS: A cystic mass is identified in the left pelvis measuring 5.9 x 5.7 cm in diameters presumably ovarian in etiology. Intrauterine IUD is identified. No free fluid. Normal bladder. ABDOMINAL WALL: No masses. Left inguinal hernia is identified containing fat. BONES: No significant or acute findings. OTHER: No other significant finding. IMPRESSION: The previously described aortic dissection appears stable. Cystic mass in the left pelv is as noted above presumably ovarian in etiology. If further workup is deemed clinically warranted I would recommend a pelvic ultrasound. Left inguinal hernia is identified containing fat. Other find ings as noted above TECHNICAL DOCUMENTATION: JOB ID: [id number] Quality ID # [id number]: Final reports with documentation of one or more dose reduction techniques (e.g., Au tomated exposure control, adjustment of the mA and/or kV according to patient size, use of iterative reconstruction technique) 2010 [employer]- All Rights Reserved
[2017-01-18 21:55] LABS: CHLAM PCR NOT DETECTED (NOT DETECT)
[2017-01-18] MEDS ORDERED: MORPHINE SULFATE 10 MG/ML INJ IV ONE (22:41)
--- NOTE | 2017-01-18 23:43 | RADIOLOGY REPORT (SQ) ---
EXAM DESCRIPTION: U/S NON OB PEL TV W/DOPPLER COMPLETED DATE/TIME: 01/18/2017 11:32 pm REASON FOR STUDY: L lower pelvic pain COMPARISON: Abdominal and pelvic CT scan 01/18/2017 TECHNIQUE: Dynamic and static grayscale images acquired of the pelvis via transvaginal approach and recorded on PACS. Additional selected color Doppler and spectral images recorded. LIMITATIONS: None. FINDINGS: UTERUS: Contour normal. No mass. ENDOMETRIAL STRIPE: No focal or generalized thickening. No masses. IUD is identified. CERVIX: No nabothian cysts. RIGHT OVARY: No abnormal masses. RIGHT OVARY DOPPLER: Normal arterial vascular flow without evidence for torsion. LEFT OVARY: Ovarian cyst is identified measuring 6.1 x 5.0 x 5.4 cm in diameters. This correlates wi th the CT findings. LEFT OVARY DOPPLER: Normal arterial vascular flow without evidence for torsion. FREE FLUID: None noted. OTHER: No other significant finding. MEASUREMENTS: UTERUS: 9.4 x 6.4 x 4.0 cm ENDOMETRIAL STRIPE: 5 mm RIGHT OVARY: 3.5 x 1.8 x 2.6 cm LEFT OVARY: 6.4 x 5.2 x 5.57 IMPRESSION: Left ovarian cyst as noted above. Other findings as noted above. TECHNICAL DOCUMENTATION: JOB ID: [id number] [employer]- All Rights Reserved
[2017-01-19 00:49] VITALS: BP 148/82
== END 2017-01-19 01:27 | disposition home or self-care (01) ==
LOC: ER 16:25
DX: N83.202 Unspecified ovarian cyst, left side (principal); I10 Essential (primary) hypertension; I25.2 Old myocardial infarction; Z98.890 Other specified postprocedural states; M54.5 Low back pain; R10.2 Pelvic and perineal pain
CPT/HCPCS: 99284; 96374; 36415; 87210; 85025; 81025; 80053; 81001; 87491; 87591; 76830; 93976; 74177; J2270

== ENCOUNTER → 2017-05-28 | Outpatient (CLI) | payer BC ==
--- NOTE | 2017-05-28 16:28 | RADIOLOGY REPORT (SQ) ---
EXAM DESCRIPTION: BONE SURVEY COMPLETE COMPLETED DATE/TIME: 05/28/2017 3:01 pm REASON FOR STUDY: PAIN IN LEFT LOWER LEG (M79.662), PAIN IN RIGHT LEG (M79.604) M79.662 PAIN IN LEF T LOWER LEG M79.604 PAIN IN RIGHT LEG COMPARISON: None. TECHNIQUE: Images of the axial and proximal appendicular skeleton are obtained, along with lateral s kull and frontal chest films. LIMITATIONS: None. FINDINGS: AP CHEST: No bony findings. Lungs are clear. LATERAL SKULL: No worrisome bone lesions. AP BOTH HUMERI: No worrisome bone lesions. TWO-VIEW LUMBAR SPINE: No worrisome bone lesions. Mild scoliosis. TWO-VIEW THORACIC SPINE: No worrisome bone lesions. Mild scoliosis. AP PELVIS: No worrisome bone lesions. AP BOTH FEMURS: No worrisome bone lesions. OTHER: No worrisome bone lesions in the humeri. Phleboliths are seen in the lower legs. IMPRESSION: No worrisome bone lesions. Phleboliths are seen in the lower legs suggesting venous dis ease. TECHNICAL DOCUMENTATION: JOB ID: [id number] [employer]- All Rights Reserved Reading location - IP/workstation name: [email or web address]
== END ==
LOC: RAD 14:28
PROVIDERS: ATTEND Internal Medicine
DX: M79.662 Pain in left lower leg (principal); M79.604 Pain in right leg
CPT/HCPCS: 77075

== ENCOUNTER → 2017-06-04 | Outpatient (CLI) | payer BC ==
--- NOTE | 2017-06-04 15:22 | RADIOLOGY REPORT (SQ) ---
EXAM DESCRIPTION: NM WHOLE BODY BONE SCAN COMPLETED DATE/TIME: 06/04/2017 3:10 pm REASON FOR STUDY: PAIN IN LEFT LOWER LEG/PAIN IN R LEG M79.662 PAIN IN LEFT LOWER LEG M79.604 PAIN IN RIGHT LEG COMPARISON: Skeletal survey dated 05/28/2017. RADIONUCLIDE AND DOSE: 21.3 millicuries Tc99m HDP. The route of agent administration: Intravenous. ADDITIONAL DRUGS AND DOSES: None. TECHNIQUE: Routine delayed images at 3 hour post radionuclide injection acquired of the bony skeleto n including anterior and posterior whole-body projections and additional focused images as needed. LIMITATIONS: None. FINDINGS: BONES: Normal visualization without areas of photopenia or increased bony uptake of radiop harmaceutical. KIDNEYS: Symmetric excretion without obstruction. OTHER: No other significant finding. IMPRESSION: NORMAL BONE SCAN. COMMENT: Quality measure 147: Current bone scan is compared with any available plain radiographs, p rior bone scans, and CT/MRI. TECHNICAL DOCUMENTATION: JOB ID: [id number] [employer]- All Rights Reserved Reading location - IP/workstation name: [email or web address]
== END ==
LOC: RAD 10:23
PROVIDERS: ATTEND Internal Medicine
DX: M79.662 Pain in left lower leg (principal); M79.604 Pain in right leg
CPT/HCPCS: 78306; A9561; Q9969

== ENCOUNTER 2017-06-23 18:02 | Emergency (ER) | payer BC ==
--- NOTE | 2017-06-23 20:17 | ER Document Report ---
ED Medical Screen (RME) - General Chief Complaint: Chest Pain Stated Complaint: CHEST PAIN Time Seen by Provider: 06/23/17 20:08 Notes: RME DISCLOSURE I have seen this patient as part of a Rapid Medical Evaluation and, if applicable, placed any initially appropriate orders. The patient will be seen and fully evaluated, including a full history and physical exam, by a provider ( in Main ED or Fast Track) when a room becomes available. 41-year-old female PMH thoracic and abdominal aortic dissection status post repair 2016 at [facility] here with complaints of chest pain radiating through to the back and up to the left neck ongoing for the past 2 days. Symptoms are progressively worsening in intensity. Symptoms worse with breathing. She has tried taking Motrin for the symptoms. TRAVEL OUTSIDE OF THE [place] IN LAST 30 DAYS: No - Related Data Allergies/Adverse Reactions: No Known Allergies Allergy (Verified 06/23/17 18:06) Past Medical History - Social History Frequency of alcohol use: Occasional Drug Abuse: None - Past Medical History Cardiac Medical History: Reports: Hx Heart Attack, Hx Hypertension Neurological Medical History: Reports: Hx Migraine Renal/ Medical History: Denies: Hx Peritoneal Dialysis GI Medical History: Reports: Hx Gastroesophageal Reflux Disease Past Surgical History: Reports: Hx Cardiac Surgery - aortic dissection repair , Hx Tonsillectomy - Immunizations Hx Diphtheria, Pertussis, Tetanus Vaccination: Yes - unk Physical Exam - Vital signs Vitals: Temp Pulse Resp BP Pulse Ox 98.4 F 67 22 H 150/71 H 96 06/23/17 18:33 06/23/17 18:33 06/23/17 18:33 06/23/17 18:33 06/23/17 18:33 Course - Vital Signs Vital signs: Temp Pulse Resp BP Pulse Ox 98.4 F 67 22 H 150/71 H 96 06/23/17 18:33 06/23/17 18:33 06/23/17 18:33 06/23/17 18:33 06/23/17 18:33
[2017-06-23 21:21] LABS: ABSOLUTE EOSINOPHILS # (AUTO) 0.1 10^3/uL (0.0-0.6); ABSOLUTE LYMPHOCYTES (AUTO) 2.2 10^3/uL (0.5-4.7); ABSOLUTE MONOCYTES (AUTO) 0.5 10^3/uL (0.1-1.4); ABSOLUTE NEUT (AUTO) 2.1 10^3/uL (1.7-8.2); BASOPHILS % (AUTO) 0.5 % (0-2); EOSINOPHILS % (AUTO) 2.7 % (0-6); HEMOGLOBIN 13.4 g/dL (12.0-15.5); MEAN CORPUSCULAR HEMOGLOBIN 29.4 pg (27.0-33.4); MEAN CORPUSCULAR HGB CONC 33.5 g/dL (32.0-36.0); MEAN CORPUSCULAR VOLUME 88 fl (80-97); MONOCYTES % (AUTO) 10.5 % (3-13); PLATELET COUNT 291 10^3/uL (150-450); RED BLOOD COUNT 4.54 10^6/uL (3.72-5.28); RED CELL DISTRIBUTION WIDTH 13.5 % (11.5-14.0); SEGMENTED NEUTROPHILS % (AUTO) 42.3 % (42-78); TOTAL CELLS COUNTED % (AUTO) 100 %
[2017-06-23 21:38] LABS: ALANINE AMINOTRANSFERASE 25 U/L (9-52); ALBUMIN 4.6 g/dL (3.5-5.0); ALKALINE PHOSPHATASE 79 U/L (38-126); ANION GAP 12 (5-19); ASPARTATE AMINO TRANSFERASE 14 U/L (14-36); BILIRUBIN,DIRECT 0.3 mg/dL (0.0-0.4); BILIRUBIN,TOTAL 0.3 mg/dL (0.2-1.3); BLOOD UREA NITROGEN 14 mg/dL (7-20); CALCIUM 9.6 mg/dL (8.4-10.2); CARBON DIOXIDE 27 mmol/L (22-30); CHLORIDE 104 mmol/L (98-107); GLUCOSE 114 mg/dL (75-110); POTASSIUM 4.1 mmol/L (3.6-5.0); SODIUM 142.5 mmol/L (137-145); TOTAL PROTEIN 7.9 g/dL (6.3-8.2)
[2017-06-23] MEDS ORDERED: ONDANSETRON HCL INJ/PF 4 MG/2 ML SDV IV ONE (22:03)
[2017-06-23] MEDS ORDERED: ONDANSETRON HCL INJ/PF 4 MG/2 ML SDV ONE (22:04)
[2017-06-23] MEDS ORDERED: FENTANYL CITRATE INJ/PF 100 MCG/2 ML AMPUL IV ONE ×2 (22:17→23:05)
--- NOTE | 2017-06-23 22:26 | ER Document Report ---
ED General - General Chief Complaint: Chest Pain Stated Complaint: CHEST PAIN Time Seen by Provider: 06/23/17 20:08 Mode of Arrival: Ambulatory Information source: Patient Notes: 41-year-old female with a history of hypertension, previous aortic dissection presents with complaint of chest pain that started 3 days prior to arrival. Patient states initially intermittent but became worse today. Pain is located across her anterior chest, described as a crushing severe pain that radiates to her back. Patient also complaining of abdominal pain that started today. Patient states she had an aortic dissection repair in 2016 at [facility]. Patient has associated nausea, vomiting, shortness of breath. She denies any fever, chills, dizziness, diaphoresis, low back pain, dysuria, hematuria, slurred speech, weakness, difficulty with ambulation. TRAVEL OUTSIDE OF THE [place] IN LAST 30 DAYS: No - HPI Onset: Other - 3 days prior to arrival Onset/Duration: Gradual - Initially intermittent and now constant since this morning. Associated symptoms: Chest pain, Nausea, Vomiting, Shortness of breath. denies : Fever, Headache, Weakness Exacerbated by: Denies Relieved by: Denies Similar symptoms previously: Yes Recently seen / treated by doctor: No - Related Data Allergies/Adverse Reactions: No Known Allergies Allergy (Verified 06/23/17 18:06) Past Medical History - General Information source: Patient, [facility] Records - Social History Smoking Status: Never Smoker Frequency of alcohol use: Occasional Drug Abuse: None Family History: Hypertension, Other - Aortic dissection Patient has suicidal ideation: No Patient has homicidal ideation: No - Past Medical History Cardiac Medical History: Reports: Hx Heart Attack, Hx Hypertension Neurological Medical History: Reports: Hx Migraine Renal/ Medical History: Denies: Hx Peritoneal Dialysis GI Medical History: Reports: Hx Gastroesophageal Reflux Disease Past Surgical History: Reports: Hx Cardiac Surgery - aortic dissection repair , Hx Tonsillectomy - Immunizations Hx Diphtheria, Pertussis, Tetanus Vaccination: Yes - unk Review of Systems - Review of Systems Notes: Patient has chest pain, back pain, associated nausea, vomiting, shortness of breath. She denies any fever, chills, dizziness, diaphoresis, low back pain, dysuria, hematuria, slurred speech, weakness, difficulty with ambulation. Physical Exam - Vital signs Vitals: Temp Pulse Resp BP Pulse Ox 98.4 F 67 22 H 150/71 H 96 06/23/17 18:33 06/23/17 18:33 06/23/17 18:33 06/23/17 18:33 06/23/17 18:33 Interpretation: Normal, Hypertensive, Tachypneic. No: Febrile - General General appearance: Alert In distress: Moderate Notes: PHYSICAL EXAMINATION: GENERAL: Ill-appearing, in moderate distress. HEAD: Atraumatic, normocephalic. EYES: Pupils equal round and reactive to light, extraocular movements intact, conjunctiva are normal. ENT: Nares patent, oropharynx clear without exudates. Moist mucous membranes. NECK: Normal range of motion, supple without lymphadenopathy LUNGS: Breath sounds clear to auscultation bilaterally and equal. No wheezes rales or rhonchi. HEART: Regular rate and rhythm without murmurs. Equal pulses. ABDOMEN: Soft, nontender, nondistended abdomen. No guarding, no rebound. No masses appreciated. Female : deferred Musculoskeletal: Normal range of motion, no pitting or edema. No cyanosis. NEUROLOGICAL: Cranial nerves grossly intact. Normal speech, normal gait. Normal sensory, motor exams PSYCH: Normal mood, normal affect. SKIN: Warm, Dry, normal turgor, no rashes or lesions noted. Course - Re-evaluation Re-evalutation: Laboratory 06/23/17 06/23/17 06/23/17 21:06 21:06 21:06 WBC 5.0 RBC 4.54 Hgb 13.4 Hct 40.0 MCV 88 MCH 29.4 MCHC 33.5 RDW 13.5 Plt Count 291 Seg Neutrophils % 42.3 Lymphocytes % 44.0 Monocytes % 10.5 Eosinophils % 2.7 Basophils % 0.5 Absolute Neutrophils 2.1 Absolute Lymphocytes 2.2 Absolute Monocytes 0.5 Absolute Eosinophils 0.1 Absolute Basophils 0.0 Sodium 142.5 Potassium 4.1 Chloride 104 Carbon Dioxide 27 Anion Gap 12 BUN 14 Creatinine 0.65 Est GFR ( Amer) > 60 Est GFR (Non-Af Amer) > 60 Glucose 114 H Calcium 9.6 Total Bilirubin 0.3 Direct Bilirubin 0.3 Neonat Total Bilirubin Not Reportable Neonat Direct Bilirubin Not Reportable Neonat Indirect Bili Not Reportable AST 14 ALT 25 Alkaline Phosphatase 79 Troponin I < 0.012 Total Protein 7.9 Albumin 4.6 06/23/17 22:36 41-year-old female with a history of hypertension, previous aortic dissection presents with complaint of chest pain that started 3 days prior to arrival. Patient states initially intermittent but became worse today. Pain is located across her anterior chest, described as a crushing severe pain that radiates to her back. Upon arrival vitals are reviewed. Patient is mildly hypertensive, afebrile, not hypoxic. Patient has normal neurologic exam, equal pulses. She is clutching her chest and moaning in pain. 06/23/17 22:38 [facility] 06/23/17 22:38 Talked with radiology who states there is an extensive dissection of the aorta that extends to her iliacs but this is unchanged from August 2016. 06/23/17 23:[address] Gomez from [facility] who will accept the patient. Additional fentanyl given. 06/24/17 00:00 And continuing to complain of pain despite 200 mg of fentanyl. Morphine administered. Repeat EKG and troponin pending. 06/24/17 00:35 repeat EKG shows T-wave inversions in V2 otherwise is unchanged. Repeat troponin within normal limits 06/24/17 04:06 Patient called me in the room and is requesting discharge home. I told her that this was not recommended and that she would have to leave AGAINST MEDICAL ADVICE. 06/24/17 06:21 Patient reevaluated multiple times. She has remained stable. 06/24/17 06:28 CBC without leukocytosis or anemia, CMP shows normal electrolytes and renal function. Lactate within normal limits, LFTs within normal limits. Troponin negative 2. 06/24/17 06:57 [facility]. They believe patient will be accepted as soon as they start discharging patients. Patient signed out to Dr Agee. - Vital Signs Vital signs: Temp Pulse Resp BP Pulse Ox 98.4 F 67 17 123/79 99 06/23/17 18:33 06/23/17 18:33 06/24/17 06:01 06/24/17 06:01 06/24/17 06:01 - Laboratory Result Diagrams: 06/23/17 21:06 06/23/17 21:06 Laboratory results interpreted by me: 06/23/17 21:06 Glucose 114 H - Diagnostic Test Radiology reviewed: Image reviewed, Reports reviewed - EKG Interpretation by Me EKG shows normal: Sinus rhythm Rate: Normal Rhythm: NSR Discharge - Discharge Disposition: [facility] Referrals: AASHISH BASS MD [Primary Care Provider] - Follow up as needed
[2017-06-23] MEDS ORDERED: ASPIRIN 325 MG TABLET PO ONE (22:39)
--- NOTE | 2017-06-23 22:41 | RADIOLOGY REPORT (SQ) ---
EXAM DESCRIPTION: CTA CHEST; CTA ABDOMEN/PELVIS W WO COMPLETED DATE/TIME: 06/23/2017 9:33 pm REASON FOR STUDY: hx thoracic/abd aorta dissection; pain again; eval COMPARISON: 09/05/2016 TECHNIQUE: CT scan of the abdominal aorta extending to the iliac bifurcation performed with intraven ous contrast using helical scanning technique with dynamic intravenous contrast injection. Images rev iewed with lung, soft tissue, and bone windows. Reconstructed coronal and sagittal MPR images reviewe d. All images stored on PACS. Advanced 3D imaging as volume rendering, MIPS, SSD performed? yes All CT scanners at this facility use dose modulation, iterative reconstruction, and/or weight based d osing when appropriate to reduce radiation dose to as low as reasonably achievable (ALARA). [facility]: Dose Right [facility]: CareDose [facility]: Dose Right [facility]: Teradose 4D [facility]: Pivot CONTRAST TYPE AND DOSE: contrast/concentration: Isovue 370.00 mg/ml; Total Contrast Delivered: 100.0 ml; Total Saline Delivered: 40.0 ml RENAL FUNCTION: None required. The patient is less than 50 years old. LIMITATIONS: None. FINDINGS: AORTA AND GREAT VESSELS: Similar appearing extensive dissection extending from the ascendi ng arch through the entire length to the iliac arteries. The left renal artery originates from the f alse lumen, the remaining osage vessels originate from the true lumen. LUNGS AND PLEURA: No acute findings. HEART: No pericardial effusion. No significant coronary artery calcifications. PULMONARY ARTERIES: No emboli visualized in the main pulmonary arteries or the segmental branches. HILAR AND MEDIASTINAL STRUCTURES: No identified masses or abnormal nodes. HARDWARE: Sternotomy. LIVER: Normal size. No masses or dilated ducts. SPLEEN: Normal size. No focal lesions. PANCREAS: No masses. No significant calcifications. No adjacent inflammation or peripancreatic fluid collections. Pancreatic duct not dilated. GALLBLADDER: No identified stones by CT criteria. No inflammatory changes to suggest cholecystitis. ADRENAL GLANDS: No significant masses or asymmetry. RIGHT KIDNEY AND URETER: No mass, calculi or urinary tract obstruction. LEFT KIDNEY AND URETER: No mass, calculi or urinary tract obstruction. RETROPERITONEUM: No retroperitoneal adenopathy, hemorrhage or masses. BOWEL AND PERITONEAL CAVITY: No masses or inflammatory changes. No free fluid or peritoneal masses. APPENDIX: Normal. ABDOMINAL WALL: No masses. No hernias. BONY STRUCTURES: No significant or acute findings. 3-D IMAGING: Confirms the above findings. OTHER: No other significant finding. IMPRESSION: Similar appearing extensive dissection extending from the ascending arch through the ent parvin length to the iliac arteries, when compared with a August 2016 exam. COMMENT: Results discussed with the emergency room physician 2220 hours. Results were confirmed and read back. TECHNICAL DOCUMENTATION: JOB ID: [id number] [place]-72 Quality ID # 436: Final reports with documentation of one or more dose reduction techniques (e.g., Au tomated exposure control, adjustment of the mA and/or kV according to patient size, use of iterative reconstruction technique) 2010 [employer]- All Rights Reserved Reading location - IP/workstation name: [employer]
--- NOTE | 2017-06-23 22:41 | RADIOLOGY REPORT (SQ) ---
EXAM DESCRIPTION: CTA CHEST; CTA ABDOMEN/PELVIS W WO COMPLETED DATE/TIME: 06/23/2017 9:33 pm REASON FOR STUDY: hx thoracic/abd aorta dissection; pain again; eval COMPARISON: 09/05/2016 TECHNIQUE: CT scan of the abdominal aorta extending to the iliac bifurcation performed with intraven ous contrast using helical scanning technique with dynamic intravenous contrast injection. Images rev iewed with lung, soft tissue, and bone windows. Reconstructed coronal and sagittal MPR images reviewe d. All images stored on PACS. Advanced 3D imaging as volume rendering, MIPS, SSD performed? yes All CT scanners at this facility use dose modulation, iterative reconstruction, and/or weight based d osing when appropriate to reduce radiation dose to as low as reasonably achievable (ALARA). [facility]: Dose Right [facility]: CareDose [facility]: Dose Right [facility]: Teradose 4D [facility]: [employer] CONTRAST TYPE AND DOSE: contrast/concentration: Isovue 370.00 mg/ml; Total Contrast Delivered: 100.0 ml; Total Saline Delivered: 40.0 ml RENAL FUNCTION: None required. The patient is less than 50 years old. LIMITATIONS: None. FINDINGS: AORTA AND GREAT VESSELS: Similar appearing extensive dissection extending from the ascendi ng arch through the entire length to the iliac arteries. The left renal artery originates from the f alse lumen, the remaining [place] vessels originate from the true lumen. LUNGS AND PLEURA: No acute findings. HEART: No pericardial effusion. No significant coronary artery calcifications. PULMONARY ARTERIES: No emboli visualized in the main pulmonary arteries or the segmental branches. HILAR AND MEDIASTINAL STRUCTURES: No identified masses or abnormal nodes. HARDWARE: Sternotomy. LIVER: Normal size. No masses or dilated ducts. SPLEEN: Normal size. No focal lesions. PANCREAS: No masses. No significant calcifications. No adjacent inflammation or peripancreatic fluid collections. Pancreatic duct not dilated. GALLBLADDER: No identified stones by CT criteria. No inflammatory changes to suggest cholecystitis. ADRENAL GLANDS: No significant masses or asymmetry. RIGHT KIDNEY AND URETER: No mass, calculi or urinary tract obstruction. LEFT KIDNEY AND URETER: No mass, calculi or urinary tract obstruction. RETROPERITONEUM: No retroperitoneal adenopathy, hemorrhage or masses. BOWEL AND PERITONEAL CAVITY: No masses or inflammatory changes. No free fluid or peritoneal masses. APPENDIX: Normal. ABDOMINAL WALL: No masses. No hernias. BONY STRUCTURES: No significant or acute findings. 3-D IMAGING: Confirms the above findings. OTHER: No other significant finding. IMPRESSION: Similar appearing extensive dissection extending from the ascending arch through the ent parvin length to the iliac arteries, when compared with a August 2016 exam. COMMENT: Results discussed with the emergency room physician 2220 hours. Results were confirmed and read back. TECHNICAL DOCUMENTATION: JOB ID: [id number] [place]-72 Quality ID # 436: Final reports with documentation of one or more dose reduction techniques (e.g., Au tomated exposure control, adjustment of the mA and/or kV according to patient size, use of iterative reconstruction technique) 2010 [employer]- All Rights Reserved Reading location - IP/workstation name: [employer]
--- NOTE | 2017-06-23 23:24 | EKG REPORT ---
SEVERITY:- BORDERLINE ECG - SINUS RHYTHM PROBABLE LEFT ATRIAL ABNORMALITY : Confirmed by: Sherin Robin 23-Jun-2017 23:22:57
[2017-06-23 23:53] LABS: LIPASE 108.3 U/L (23-300)
[2017-06-24] MEDS ORDERED: MORPHINE SULFATE 10 MG/ML INJ IV ONE ×3 (00:04→16:01)
[2017-06-24] MEDS ORDERED: MORPHINE SULFATE 10 MG/ML INJ ONE (00:07)
[2017-06-24 00:08] LABS: CREATINE KINASE MB < 0.22 ng/mL (<4.55); TROPONIN I < 0.012 ng/mL
--- NOTE | 2017-06-24 09:12 | EKG REPORT ---
SEVERITY:- ABNORMAL ECG - SINUS RHYTHM LEFT VENTRICULAR HYPERTROPHY : Confirmed by: Sherin Robin 24-Jun-2017 09:11:40
--- NOTE | 2017-06-24 09:12 | EKG REPORT ---
SEVERITY:- BORDERLINE ECG - SINUS RHYTHM PROBABLE LEFT ATRIAL ABNORMALITY BORDERLINE T ABNORMALITIES, ANT-LAT LEADS : Confirmed by: Sherin Robin 24-Jun-2017 09:11:58
[2017-06-24] MEDS ORDERED: ONDANSETRON HCL INJ/PF 4 MG/2 ML SDV IV ONE (16:01)
[2017-06-24] MEDS ORDERED: NITROGLYCERIN 5 MG (0.2 MG/HR) PATCH.TD24 TD ONE (18:24)
[2017-06-24 18:52] LABS: CREATINE KINASE MB < 0.22 ng/mL (<4.55); TROPONIN I < 0.012 ng/mL
--- NOTE | 2017-06-24 19:40 | ER Document Report ---
Doctor's Note Notes: 06/24/17 19:35 Patient continues to have pain in the anterior portion of her chest. She has been thoroughly evaluated here over the past 24 hours. She has had at least 412 -lead EKGs that are all completely stone cold negative. She has had 3 sets of troponins done, all 3 sets completely normal. She had a CTA of her chest and abdomen last night which showed a stable aortic dissection. And, there was no evidence of pulmonary emboli on those scans. I have reviewed the CT results with Dr. Basilio this afternoon. I also spoke with the transfer center at [facility] and learned from them that the vascular surgeon at [facility] had looked at the films that were sent there and said that they were stable and there was nothing for them to do and that she just needed better control of her blood pressure. Patient's blood pressure has been in the 120s-130s systolic all afternoon today. I spoke with Dr. Collazo, her primary care provider, and he says patient is frequently seen in his office for chest pains. Patient says that she has an appointment to see her used car lot attendant, Dr. Hoover, tomorrow at 1015. Given this completely normal workup and observation for the past 24 hours with no positive findings, I believe the patient can be discharged safely to see Dr. Hoover tomorrow and follow-up with Dr. Mariee on Wednesday. Explained all the workup and findings to the patient and she is agreeable to being discharged. I am going to prescribe her a dozen cassette tablets to hold her for a couple of days and she will be discharged home.
[2017-06-24 20:02] VITALS: BP 142/68
--- NOTE | 2017-06-24 21:55 | EKG REPORT ---
SEVERITY:- NORMAL ECG - SINUS RHYTHM : Confirmed by: Sherin Robin 24-Jun-2017 21:54:04
== END 2017-06-24 20:06 | disposition home or self-care (01) ==
LOC: ER 18:02
DX: R07.9 Chest pain, unspecified (principal); I10 Essential (primary) hypertension; I71.00 Dissection of unspecified site of aorta; M54.9 Dorsalgia, unspecified; R11.2 Nausea with vomiting, unspecified; R06.02 Shortness of breath; I25.2 Old myocardial infarction
CPT/HCPCS: 93005 ×2; 96376; 99285; 96374; 96375; 36415; 82553; 82550; 83690; 85025; 80053; 84484; 83605; 71275; 74174; 93010 ×2; J3010; J2270; J3490; J2405 ×2

== ENCOUNTER 2017-06-27 11:09 | Emergency (ER) | payer BC ==
--- NOTE | 2017-06-27 11:45 | ER Document Report ---
ED Medical Screen (RME) - General Chief Complaint: Chest Pain Stated Complaint: CHEST PAIN Time Seen by Provider: 06/27/17 11:36 Notes: 41-year-old female patient complaining of substernal chest pain for the last 4- 5 days. She was seen here Wednesday and stayed approximately 24 hours. She did have lab work and multiple troponins that were normal. She had multiple EKGs were all normal. She did not have a sed rate checked. She was seen on Wednesday by her mine analyst who told her he thought it was pericarditis and did an echo. She was placed on Motrin 800 3 times daily which is not helping. Past history significant for aortic dissection repair on 01/18/2016, this was thoroughly investigated by CT scans and consultation with her surgeons in [place] and was determined not to be the problem. I have greeted and performed a rapid initial assessment of this patient. A comprehensive ED assessment and evaluation of the patient, analysis of test results and completion of the medical decision making process will be conducted by additional ED providers. TRAVEL OUTSIDE OF THE [place] IN LAST 30 DAYS: No - Related Data Allergies/Adverse Reactions: No Known Allergies Allergy (Verified 06/23/17 18:06) Home Medications: coreg. aspirin 81mg. seraquil. prozac. lasix. xanax Past Medical History - Social History Chew tobacco use (# tins/day): No Frequency of alcohol use: Occasional Drug Abuse: None - Past Medical History Cardiac Medical History: Reports: Hx Heart Attack, Hx Hypertension Neurological Medical History: Reports: Hx Migraine Renal/ Medical History: Denies: Hx Peritoneal Dialysis GI Medical History: Reports: Hx Gastroesophageal Reflux Disease Past Surgical History: Reports: Hx Abdominal Surgery - hernia repair, Hx Cardiac Surgery - aortic dissection repair 01/18/16, Hx Tonsillectomy - Immunizations Hx Diphtheria, Pertussis, Tetanus Vaccination: Yes - unk Physical Exam - Vital signs Vitals: Temp Pulse Resp BP Pulse Ox 98.0 F 79 20 149/103 H 95 06/27/17 11:21 06/27/17 11:21 06/27/17 11:21 06/27/17 11:21 06/27/17 11:21 Course - Vital Signs Vital signs: Temp Pulse Resp BP Pulse Ox 98.0 F 79 20 149/103 H 95 06/27/17 11:21 06/27/17 11:21 06/27/17 11:21 06/27/17 11:21 06/27/17 11:21
[2017-06-27 12:30] LABS: ABSOLUTE EOSINOPHILS # (AUTO) 0.2 10^3/uL (0.0-0.6); ABSOLUTE LYMPHOCYTES (AUTO) 1.6 10^3/uL (0.5-4.7); ABSOLUTE MONOCYTES (AUTO) 0.4 10^3/uL (0.1-1.4); ABSOLUTE NEUT (AUTO) 1.5 10^3/uL (1.7-8.2); BASOPHILS % (AUTO) 0.7 % (0-2); EOSINOPHILS % (AUTO) 4.2 % (0-6); HEMATOCRIT 39.6 % (36.0-47.0); HEMOGLOBIN 13.3 g/dL (12.0-15.5); LYMPHOCYTES % (AUTO) 43.3 % (13-45); MEAN CORPUSCULAR HEMOGLOBIN 29.5 pg (27.0-33.4); MEAN CORPUSCULAR HGB CONC 33.5 g/dL (32.0-36.0); MEAN CORPUSCULAR VOLUME 88 fl (80-97); MONOCYTES % (AUTO) 10.2 % (3-13); PLATELET COUNT 299 10^3/uL (150-450); RED CELL DISTRIBUTION WIDTH 13.3 % (11.5-14.0); SEGMENTED NEUTROPHILS % (AUTO) 41.6 % (42-78); TOTAL CELLS COUNTED % (AUTO) 100 %; WHITE BLOOD COUNT 3.7 10^3/uL (4.0-10.5)
[2017-06-27] MEDS ORDERED: ONDANSETRON HCL INJ/PF 4 MG/2 ML SDV IV ONE ×2 (12:45→17:23)
[2017-06-27] MEDS ORDERED: MORPHINE SULFATE 10 MG/ML INJ IV ONE ×2 (12:45→17:23)
[2017-06-27] MEDS ORDERED: DILTIAZEM HCL INJ 25 MG/5 ML VIAL IV ONE (13:04)
[2017-06-27 13:07] LABS: ERYTHROCYTE SEDIMENTATION RATE 15 mm/hr (0-20)
--- NOTE | 2017-06-27 13:09 | ER Document Report ---
ED Cardiac - General Mode of Arrival: Ambulatory Information source: Patient TRAVEL OUTSIDE OF THE [place] IN LAST 30 DAYS: No - HPI Patient complains to provider of: Chest pain Use of: denies: Alcohol, Amphetamines, Bath salts, Caffeine, Cocaine, Decongestants, Other Was the onset of pain: Gradual When did pain begin: 6 DAYS AGO Is the pain a: Chronic problem Chest pain location: Other - UPPER STERNAL, BILATERAL ANT. CHEST, RADIATION TO BACK Quality of pain: Sharp, Throbbing Chest pain radiation location: Back Severity now: Moderate Severity at worst: Severe Chest pain precipitating factors: POSTURE (SEE BELOW) Cardiac risk factors: Hypertension Positive cardiac history: Yes Associated symptoms: Back pain, Shortness of breath. denies: Nausea/vomiting Exacerbated by: Lying flat - SUPINE Relieved by: Leaning forward Similar symptoms previously: Yes - W/ PERICARDITIS Recently seen / treated by doctor: Yes - [employer] 06/25. - Related Data Home Medications: coreg. aspirin 81mg. seraquil. prozac. lasix. xanax <SHANAE DE ANDA - Last Filed: 06/27/17 19:03> <ESTEFANY WOODS - Last Filed: 06/27/17 21:48> - General Chief Complaint: Chest Pain Stated Complaint: CHEST PAIN Time Seen by Provider: 06/27/17 11:36 - Related Data Allergies/Adverse Reactions: No Known Allergies Allergy (Verified 06/23/17 18:06) Past Medical History - General Information source: Patient - Social History Smoking Status: Former Smoker Cigarette use (# per day): No Chew tobacco use (# tins/day): No Frequency of alcohol use: Occasional Drug Abuse: None Family History: Hypertension, Other - Aortic dissection Patient has suicidal ideation: No Patient has homicidal ideation: No - Past Medical History Cardiac Medical History: Reports: Hx Heart Attack, Hx Hypertension Pulmonary Medical History: Reports: None Neurological Medical History: Reports: Hx Migraine Endocrine Medical History: Reports: None Renal/ Medical History: Reports: None. Denies: Hx Peritoneal Dialysis Malignancy Medical History: Reports: None GI Medical History: Reports: Hx Gastroesophageal Reflux Disease Psychiatric Medical History: Reports: None Past Surgical History: Reports: Hx Abdominal Surgery - hernia repair, Hx Cardiac Surgery - aortic dissection repair 01/18/16, Hx Tonsillectomy - Immunizations Hx Diphtheria, Pertussis, Tetanus Vaccination: Yes - unk <SHANAE DE ANDA - Last Filed: 06/27/17 19:03> Review of Systems - Review of Systems Constitutional: No symptoms reported. denies: Chills, Fever EENT: No symptoms reported Cardiovascular: See HPI Respiratory: See HPI Gastrointestinal: No symptoms reported Genitourinary: No symptoms reported Female Genitourinary: No symptoms reported Musculoskeletal: No symptoms reported Skin: No symptoms reported Neurological/Psychological: No symptoms reported <SHANAE DE ANDA - Last Filed: 06/27/17 19:03> Physical Exam - Vital signs Interpretation: Hypertensive. No: Tachycardic, Tachypneic, Febrile - General General appearance: Anxious In distress: Mild - HEENT Head: Normocephalic Eyes: Normal Conjunctiva: Normal Ears: Normal Nasal: Normal Mouth/Lips: Normal Mucous membranes: Normal Neck: Normal, Supple - Respiratory Respiratory status: No respiratory distress Breath sounds: Normal - Cardiovascular Rhythm: Regular Heart sounds: Normal auscultation Murmur: No - Abdominal Inspection: Obese - Back Back: Normal - Extremities General upper extremity: Normal inspection General lower extremity: Normal inspection - Neurological Neuro grossly intact: Yes Cognition: Normal Orientation: AAOx4 - Psychological Associated symptoms: Anxious - Skin Skin Temperature: Warm Skin Moisture: Dry Skin Color: Normal Skin Turgor: Elastic <SHANAE DE ANDA - Last Filed: 06/27/17 19:03> - Vital signs Vitals: Temp Pulse Resp BP Pulse Ox 98.0 F 79 20 149/103 H 95 06/27/17 11:21 06/27/17 11:21 06/27/17 11:21 06/27/17 11:21 06/27/17 11:21 Course - Laboratory Result Diagrams: 06/27/17 12:01 06/27/17 14:26 - EKG Interpretation by Ks EKG shows normal: Sinus rhythm, [place], Intervals, QRS Complexes. abnormal: ST-T Waves - BORDERLINE ANT. T ABNLS Rate: Normal P Waves: LAE - Consults DR. ARREOLA Time consulted: 17:20 DR. RENAE Time consulted: 18:11 <LLOYDROCSHANAE - Last Filed: 06/27/17 19:03> - Laboratory Result Diagrams: 06/27/17 12:01 06/27/17 14:26 <ESTEFANY WOODS - Last Filed: 06/27/17 21:48> - Re-evaluation Re-evalutation: 06/27/17 19:03 Patient states chest pain is somewhat improved after last dose of Dilaudid. Still mildly hypertensive. Exam otherwise unchanged. Told patient and family present that transfer has been accepted and we are waiting bed assignment at [facility]. Patient care turned over to Dr. Woods. (SHANAE DE ANDA) 06/27/17 21:48 Patient is stable for transport at this time. (ESTEFANY WOODS) - Vital Signs Vital signs: Temp Pulse Resp BP Pulse Ox 97.8 F 79 13 147/77 H 98 06/27/17 18:30 06/27/17 11:21 06/27/17 20:06 06/27/17 20:06 06/27/17 20:06 - Laboratory Laboratory results interpreted by me: 06/27/17 06/27/17 12:01 14:26 WBC 3.7 L Seg Neutrophils % 41.6 L Absolute Neutrophils 1.5 L Chloride 108 H AST 13 L - Consults DR. ARREOLA Reason for consultation: 06/27/17 18:40 ADVISES NO SURGICAL INTERVENTION LIKELY TO BE INDICATED, SEEK ADMISSION VIA MEDICAL CARDIOLOGY. (SHANAE DE ANDA) DR. RENAE Reason for consultation: 06/27/17 18:42 Phone call from "Lori" at [facility], saying that patient has been accepted for transfer. Awaiting bed assignment. She states the expecting physician will be . (SHANAE DE ANDA) Discharge <SHANAE DE ANDA - Last Filed: 06/27/17 19:03> <ESTEFANY WOODS - Last Filed: 06/27/17 21:48> - Discharge Clinical Impression: Hypertensive urgency, Aortic dissection, thoracoabdominal Chest pain Qualifiers: Chest pain type: unspecified Qualified Code(s): R07.9 - Chest pain, unspecified Condition: Good Disposition: [facility] Referrals: AASHISH BASS MD [Primary Care Provider] - Follow up as needed
[2017-06-27 14:56] LABS: ALANINE AMINOTRANSFERASE 32 U/L (9-52); ALKALINE PHOSPHATASE 69 U/L (38-126); ANION GAP 9 (5-19); ASPARTATE AMINO TRANSFERASE 13 U/L (14-36); BILIRUBIN,DIRECT 0.1 mg/dL (0.0-0.4); BILIRUBIN,TOTAL 0.3 mg/dL (0.2-1.3); BLOOD UREA NITROGEN 11 mg/dL (7-20); C-REACTIVE PROTEIN < 5.0 mg/L (<10.0); CALCIUM 9.3 mg/dL (8.4-10.2); CARBON DIOXIDE 23 mmol/L (22-30); CHLORIDE 108 mmol/L (98-107); CREATINE KINASE 40 U/L (30-135); GLUCOSE 104 mg/dL (75-110); POTASSIUM 3.9 mmol/L (3.6-5.0); SODIUM 140.3 mmol/L (137-145); TOTAL PROTEIN 6.8 g/dL (6.3-8.2)
--- NOTE | 2017-06-27 16:42 | EKG REPORT ---
SEVERITY:- ABNORMAL ECG - SINUS RHYTHM LEFT ATRIAL ABNORMALITY BORDERLINE T ABNORMALITIES, ANTERIOR LEADS : Confirmed by: Sherin Robin 27-Jun-2017 16:41:46
[2017-06-27] MEDS ORDERED: CLONIDINE HCL 0.2 MG TABLET PO ONE (18:29)
[2017-06-27] MEDS ORDERED: LORAZEPAM 1 MG TABLET PO ONE (18:35)
[2017-06-27] MEDS ORDERED: ASPIRIN 81 MG TABLET, CHEWABLE PO ONE (18:56)
[2017-06-27 19:44] LABS: CREATINE KINASE MB < 0.22 ng/mL (<4.55); TROPONIN I < 0.012 ng/mL
[2017-06-27] MEDS ORDERED: LORAZEPAM INJ 2 MG/1 ML VIAL IV ONE (21:47)
[2017-06-27] MEDS ORDERED: LORAZEPAM INJ 2 MG/1 ML VIAL ONE (21:52)
--- NOTE | 2017-06-27 22:57 | EKG REPORT ---
SEVERITY:- ABNORMAL ECG - SINUS RHYTHM LEFT VENTRICULAR HYPERTROPHY BORDERLINE T ABNORMALITIES, ANT LEADS : Confirmed by: Sherin Robin 27-Jun-2017 22:55:42
[2017-06-28 04:10] VITALS: BP 133/84
== END 2017-06-27 21:55 | disposition short-term general hospital (02) ==
LOC: ER 11:09
DX: I71.03 Dissection of thoracoabdominal aorta (principal); I16.0 Hypertensive urgency; I10 Essential (primary) hypertension; R07.9 Chest pain, unspecified; R06.02 Shortness of breath; M54.9 Dorsalgia, unspecified; I25.2 Old myocardial infarction; F41.9 Anxiety disorder, unspecified; Z87.891 Personal history of nicotine dependence; Z98.890 Other specified postprocedural states; Z82.49 Family history of ischemic heart disease and other diseases of the circulatory system
CPT/HCPCS: 93005; 96376; 99285; 96374; 96375; 36415; 82553; 82550; 85025; 85652; 86140; 80053; 84484; 93010; J3490; J2270; J2060; J2405

== ENCOUNTER → 2017-08-30 | Outpatient (CLI) | payer BC ==
--- NOTE | 2017-08-30 12:40 | RADIOLOGY REPORT (SQ) ---
EXAM DESCRIPTION: CT HEAD WITHOUT COMPLETED DATE/TIME: 08/30/2017 12:30 pm REASON FOR STUDY: HEADACHE R51 HEADACHE COMPARISON: CT brain 08/26/2016 TECHNIQUE: Axial images acquired through the brain without intravenous contrast. Images reviewed wi th bone, brain and subdural windows. Additional sagittal and coronal reconstructions were generated. Images stored on PACS. All CT scanners at this facility use dose modulation, iterative reconstruction, and/or weight based d osing when appropriate to reduce radiation dose to as low as reasonably achievable (ALARA). [facility]: Dose Right [facility]: CareDose [facility]: Dose Right [facility]: Teradose 4D [facility]: Rentalutions RADIATION DOSE: CT Rad equipment meets quality standard of care and radiation dose reduction techniq ues were employed. CTDIvol: 48.6 mGy. DLP: 953 mGy-cm. mGy. LIMITATIONS: None. FINDINGS: VENTRICLES: Normal size and contour. CEREBRUM: No masses. No hemorrhage. No midline shift. No evidence for acute infarction. Normal gra y/white matter differentiation. No areas of low density in the white matter. CEREBELLUM: No masses. No hemorrhage. No alteration of density. No evidence for acute infarction. EXTRAAXIAL SPACES: No fluid collections. No masses. ORBITS AND GLOBE: No intra- or extraconal masses. Normal contour of globe without masses. CALVARIUM: No fracture. PARANASAL SINUSES: No fluid or mucosal thickening. SOFT TISSUES: No mass or hematoma. OTHER: No other significant finding. IMPRESSION: NORMAL BRAIN CT WITHOUT CONTRAST. EVIDENCE OF ACUTE STROKE: NO. COMMENT: Quality ID # [id number]: Final reports with documentation of one or more dose reduction techniques (e.g., Automated exposure control, adjustment of the mA and/or kV according to patient size, use of iterative reconstruction technique) TECHNICAL DOCUMENTATION: JOB ID: [id number]- All Rights Reserved Reading location - IP/workstation name: [email or web address]
== END ==
LOC: RAD 12:12
PROVIDERS: ATTEND Internal Medicine
DX: R51 Headache (principal)
CPT/HCPCS: 70450

== ENCOUNTER → 2017-09-29 | Outpatient (CLI) | payer BC ==
[2017-09-29 12:57] LABS: ABSOLUTE EOSINOPHILS # (AUTO) 0.1 10^3/uL (0.0-0.6); ABSOLUTE LYMPHOCYTES (AUTO) 1.8 10^3/uL (0.5-4.7); ABSOLUTE MONOCYTES (AUTO) 0.4 10^3/uL (0.1-1.4); ABSOLUTE NEUT (AUTO) 1.4 10^3/uL (1.7-8.2); BASOPHILS % (AUTO) 0.6 % (0-2); EOSINOPHILS % (AUTO) 2.2 % (0-6); HEMOGLOBIN 13.9 g/dL (12.0-15.5); LYMPHOCYTES % (AUTO) 48.8 % (13-45); MEAN CORPUSCULAR HGB CONC 33.9 g/dL (32.0-36.0); MEAN CORPUSCULAR VOLUME 88 fl (80-97); PLATELET COUNT 273 10^3/uL (150-450); RED BLOOD COUNT 4.65 10^6/uL (3.72-5.28); RED CELL DISTRIBUTION WIDTH 13.5 % (11.5-14.0); SEGMENTED NEUTROPHILS % (AUTO) 38.4 % (42-78); TOTAL CELLS COUNTED % (AUTO) 100 %; WHITE BLOOD COUNT 3.7 10^3/uL (4.0-10.5)
[2017-09-29 13:03] LABS: APPEARANCE,URINE SLIGHTLY-CLOUDY; BILIRUBIN,URINE NEGATIVE (NEGATIVE); COLOR,URINE YELLOW; GLUCOSE, URINE NEGATIVE (NEGATIVE); KETONES,URINE NEGATIVE (NEGATIVE); LEUKOCYTE ESTERASE,URINE NEGATIVE (NEGATIVE); NITRITE,URINE NEGATIVE (NEGATIVE); PROTEIN,URINE NEGATIVE (NEGATIVE); URINE SPECIFIC GRAVITY 1.025; UROBILINOGEN,URINE NEGATIVE mg/dL (<2.0)
[2017-09-29 13:22] LABS: ALANINE AMINOTRANSFERASE 25 U/L (9-52); ALBUMIN 4.2 g/dL (3.5-5.0); ALKALINE PHOSPHATASE 65 U/L (38-126); ANION GAP 12 (5-19); ASPARTATE AMINO TRANSFERASE 15 U/L (14-36); BILIRUBIN,DIRECT 0.3 mg/dL (0.0-0.4); BILIRUBIN,TOTAL 0.6 mg/dL (0.2-1.3); BLOOD UREA NITROGEN 15 mg/dL (7-20); CALCIUM 8.9 mg/dL (8.4-10.2); CARBON DIOXIDE 25 mmol/L (22-30); CHLORIDE 106 mmol/L (98-107); GLUCOSE 125 mg/dL (75-110); POTASSIUM 4.5 mmol/L (3.6-5.0); SODIUM 142.7 mmol/L (137-145); TOTAL PROTEIN 7.3 g/dL (6.3-8.2)
[2017-09-29 13:36] LABS: FREE T4 (FREE THYROXINE) 0.96 ng/dL (0.78-2.19)
[2017-09-29 13:50] LABS: THYROID STIMULATING HORMONE 0.69 uIU/mL (0.47-4.68)
== END ==
LOC: LAB 12:39
PROVIDERS: ATTEND Internal Medicine
DX: R11.10 Vomiting, unspecified (principal)
CPT/HCPCS: 36415; 80053; 81001; 84439; 84443; 85025; 87086

== ENCOUNTER 2018-01-23 08:10 | Emergency (ER) | payer BC ==
--- NOTE | 2018-01-23 09:29 | ER Document Report ---
ED Medical Screen (RME) - General Chief Complaint: Chest Pain Stated Complaint: CHEST/ABDOMINAL PAIN Time Seen by Provider: 01/23/18 09:26 Mode of Arrival: Ambulatory Information source: Patient Notes: This is a 42-year-old female with a history of hypertension and aortic dissection repair (Dr. Kaufman in [place] in 2016) who presents to the emergency room with sharp chest and abdominal pain. Patient states she started having the epigastric discomfort today. She states the chest pain started yesterday. It is improved by lying flat. She denies any significant shortness of breath. She states that it is different than the pain she experienced prior to her aortic graft. TRAVEL OUTSIDE OF THE [place] IN LAST 30 DAYS: No - Related Data Allergies/Adverse Reactions: No Known Allergies Allergy (Verified 06/23/17 18:06) Past Medical History - Past Medical History Cardiac Medical History: Reports: Hx Heart Attack, Hx Hypertension Neurological Medical History: Reports: Hx Migraine Renal/ Medical History: Denies: Hx Peritoneal Dialysis GI Medical History: Reports: Hx Gastroesophageal Reflux Disease Past Surgical History: Reports: Hx Abdominal Surgery - hernia repair, Hx Cardiac Surgery - aortic dissection repair 01/18/16, Hx Tonsillectomy - Immunizations Hx Diphtheria, Pertussis, Tetanus Vaccination: Yes - unk Physical Exam - Vital signs Vitals: Temp Pulse Resp BP Pulse Ox 98.6 F 74 16 143/83 H 98 01/23/18 08:25 01/23/18 08:25 01/23/18 08:25 01/23/18 08:25 01/23/18 08:25 Course - Vital Signs Vital signs: Temp Pulse Resp BP Pulse Ox 98.6 F 74 16 143/83 H 98 01/23/18 08:25 01/23/18 08:25 01/23/18 08:25 01/23/18 08:25 01/23/18 08:25 Doctor's Discharge - Discharge Referrals: AASHISH BASS MD [Primary Care Provider] - Follow up as needed
[2018-01-23] MEDS ORDERED: ONDANSETRON HCL INJ/PF 4 MG/2 ML SDV IV ONE ×2 (09:31→16:35)
[2018-01-23] MEDS ORDERED: MORPHINE SULFATE 10 MG/ML INJ IV ONE (09:32)
--- NOTE | 2018-01-23 09:39 | EKG REPORT ---
SEVERITY:- BORDERLINE ECG - SINUS RHYTHM PROBABLE LEFT ATRIAL ABNORMALITY : Confirmed by: Henrietta Ross MD 23-Jan-2018 09:39:09
--- NOTE | 2018-01-23 10:29 | RADIOLOGY REPORT (SQ) ---
EXAM DESCRIPTION: CHEST SINGLE VIEW COMPLETED DATE/TIME: 01/23/2018 10:16 am REASON FOR STUDY: chest pain COMPARISON: 01/24/2016. EXAM PARAMETERS: NUMBER OF VIEWS: One view. TECHNIQUE: Single frontal radiographic view of the chest acquired. RADIATION DOSE: NA LIMITATIONS: None. FINDINGS: LUNGS AND PLEURA: No opacities, masses or pneumothorax. No pleural effusion. MEDIASTINUM AND HILAR STRUCTURES: No masses. Contour normal. HEART AND VASCULAR STRUCTURES: Heart normal in size. Ectatic aorta. Normal vasculature. BONES: No acute findings. HARDWARE: Sternotomy wires. OTHER: No other significant finding. IMPRESSION: NO ACUTE RADIOGRAPHIC FINDING IN THE CHEST. TECHNICAL DOCUMENTATION: JOB ID: [id number] [employer]- All Rights Reserved Reading location - IP/workstation name: [email or web address]
[2018-01-23 10:40] LABS: APPEARANCE,URINE CLEAR; BILIRUBIN,URINE NEGATIVE (NEGATIVE); COLOR,URINE YELLOW; GLUCOSE, URINE NEGATIVE (NEGATIVE); KETONES,URINE NEGATIVE (NEGATIVE); LEUKOCYTE ESTERASE,URINE NEGATIVE (NEGATIVE); NITRITE,URINE NEGATIVE (NEGATIVE); PROTEIN,URINE NEGATIVE (NEGATIVE); URINE SPECIFIC GRAVITY 1.023; UROBILINOGEN,URINE NEGATIVE mg/dL (<2.0)
[2018-01-23 11:29] LABS: ABSOLUTE EOSINOPHILS # (AUTO) 0.1 10^3/uL (0.0-0.6); ABSOLUTE MONOCYTES (AUTO) 0.4 10^3/uL (0.1-1.4); BASOPHILS % (AUTO) 0.4 % (0-2); EOSINOPHILS % (AUTO) 1.9 % (0-6); HEMATOCRIT 38.5 % (36.0-47.0); HEMOGLOBIN 13.4 g/dL (12.0-15.5); LYMPHOCYTES % (AUTO) 44.4 % (13-45); MEAN CORPUSCULAR HEMOGLOBIN 30.7 pg (27.0-33.4); MEAN CORPUSCULAR HGB CONC 34.9 g/dL (32.0-36.0); MEAN CORPUSCULAR VOLUME 88 fl (80-97); MONOCYTES % (AUTO) 8.7 % (3-13); PLATELET COUNT 280 10^3/uL (150-450); RED BLOOD COUNT 4.37 10^6/uL (3.72-5.28); RED CELL DISTRIBUTION WIDTH 13.7 % (11.5-14.0); SEGMENTED NEUTROPHILS % (AUTO) 44.6 % (42-78); TOTAL CELLS COUNTED % (AUTO) 100 %; WHITE BLOOD COUNT 4.6 10^3/uL (4.0-10.5)
[2018-01-23 11:51] LABS: ALANINE AMINOTRANSFERASE 13 U/L (9-52); ALKALINE PHOSPHATASE 91 U/L (38-126); ANION GAP 13 (5-19); ASPARTATE AMINO TRANSFERASE 14 U/L (14-36); BILIRUBIN,DIRECT 0.1 mg/dL (0.0-0.4); BILIRUBIN,TOTAL 0.4 mg/dL (0.2-1.3); BLOOD UREA NITROGEN 12 mg/dL (7-20); CARBON DIOXIDE 23 mmol/L (22-30); CHLORIDE 107 mmol/L (98-107); CREATINE KINASE 38 U/L (30-135); GLUCOSE 98 mg/dL (75-110); LIPASE 58.1 U/L (23-300); POTASSIUM 4.3 mmol/L (3.6-5.0); SODIUM 142.7 mmol/L (137-145); TOTAL PROTEIN 7.2 g/dL (6.3-8.2)
[2018-01-23 12:03] LABS: CREATINE KINASE MB < 0.22 ng/mL (<4.55); TROPONIN I < 0.012 ng/mL
[2018-01-23] MEDS ORDERED: HYDROMORPHONE HCL INJ/PF 2 MG/ML AMPULE IV ONE ×3 (12:31→16:34)
[2018-01-23] MEDS ORDERED: ESMOLOL HCL/SOD CL 2,500 MG/250 ML RTUINJ IV PRN ×2 (13:14→15:24)
--- NOTE | 2018-01-23 14:10 | RADIOLOGY REPORT (SQ) ---
EXAM DESCRIPTION: CTA ABDOMEN/PELVIS W WO COMPLETED DATE/TIME: 01/23/2018 1:06 pm REASON FOR STUDY: concern for dissection; abdominal pain, hx of dissection COMPARISON: 06/23/2017 TECHNIQUE: CT scan of the abdomen and pelvis performed using helical scanning technique with dynamic intravenous contrast injection. No oral contrast. Images reviewed with lung, soft tissue, and bone w indows. Reconstructed coronal and sagittal MPR images reviewed. Delayed images for evaluation of the urinary system also acquired. All images stored on PACS. All CT scanners at this facility use dose modulation, iterative reconstruction, and/or weight based d osing when appropriate to reduce radiation dose to as low as reasonably achievable (ALARA). [facility]: Dose Right [facility]: CareDose [facility]: Dose Right [facility]: Teradose 4D [facility]: Algolux CONTRAST TYPE AND DOSE: contrast/concentration: Isovue 350.00 mg/ml; Total Contrast Delivered: 70.0 ml; Total Saline Delivered: 65.0 ml RENAL FUNCTION: GFR > 60. RADIATION DOSE: CT Rad equipment meets quality standard of care and radiation dose reduction techniq ues were employed. CTDIvol: 17.0 - 22.4 mGy. DLP: 2152 mGy-cm.. LIMITATIONS: None. FINDINGS: LOWER CHEST: Aortic dissection is again noted, the aortic diameter has increased since the June exam with AP diameter measuring 4.3 cm in the mid descending thoracic aorta, previously this m easured 3.9 cm at the same level. The diameter a medially below the diaphragmatic hiatus measures 3. 75 cm, previously 3.41 cm at this level. LIVER: Normal size. No enhancing masses. No dilated ducts. SPLEEN: Normal size. No focal lesions. PANCREAS: No masses identified. No significant calcifications. No adjacent inflammation or peripancre atic fluid collections. Pancreatic duct not dilated. GALLBLADDER: No calcified stones. No inflammatory changes to suggest cholecystitis. ADRENAL GLANDS: No significant masses. RIGHT KIDNEY AND URETER: Small cyst identified. No solid masses identified. No calcified stones. No h ydronephrosis or hydroureter. LEFT KIDNEY AND URETER: No cysts identified. No solid masses identified. No calcified stones. No hydr onephrosis or hydroureter. AORTA AND VESSELS: Extensive Aortic dissection is again noted, the aortic diameter has increased sinc e the June exam with AP diameter measuring 4.3 cm in the mid descending thoracic aorta, previously t his measured 3.9 cm at the same level. The diameter a medially below the diaphragmatic hiatus measur es 3.75 cm, previously 3.41 cm at this level. The celiac artery appears to be supplied largely by th e false lumen on the current study, previously predominantly by the true lumen. The SMA continues to be supplied by the true lumen as is the right renal artery. The left renal artery remains supplied by the false lumen. The inferior mesenteric artery remains supplied by the true lumen. The dissecti on flap extends into the common iliac arteries, left greater than right, no distal propagation of the dissection flap into the external or internal iliac arteries. RETROPERITONEUM: No bulky retroperitoneal adenopathy. BOWEL AND PERITONEAL CAVITY: No obstruction or inflammatory changes. No free fluid. APPENDIX: Normal. PELVIS: IUD present. No free fluid. Unremarkable bladder. ABDOMINAL WALL: No masses. No hernias. BONES: No acute findings. OTHER: No other significant finding. IMPRESSION: No retroperitoneal or periaortic free fluid -hemorrhage. Extensive Aortic dissection is again noted, the aortic diameter has increased since the June exam with AP diameter measuring 4.3 c m in the mid descending thoracic aorta, previously this measured 3.9 cm at the same level. The diame ter a medially below the diaphragmatic hiatus measures 3.75 cm, previously 3.41 cm at this level. Th e celiac artery appears to be supplied largely by the false lumen on the current study, previously pr edominantly by the true lumen. The SMA continues to be supplied by the true lumen as is the right lala al artery. The left renal artery remains supplied by the false lumen. The inferior mesenteric arter y remains supplied by the true lumen. The dissection flap extends into the common iliac arteries, le ft greater than right, no distal propagation of the dissection flap into the external or internal brenda ac arteries. TECHNICAL DOCUMENTATION: JOB ID: [id number] Quality ID # [id number]: Final reports with documentation of one or more dose reduction techniques (e.g., Au tomated exposure control, adjustment of the mA and/or kV according to patient size, use of iterative reconstruction technique) 2010 [employer]- All Rights Reserved Reading location - IP/workstation name: [email or web address]
[2018-01-23] MEDS ORDERED: HYDRALAZINE HCL INJ/PF 20 MG/1 ML SDV IV ONE (16:26)
--- NOTE | 2018-01-23 16:29 | ER Document Report ---
ED Cardiac - General Chief Complaint: Chest Pain Stated Complaint: CHEST/ABDOMINAL PAIN Time Seen by Provider: 01/23/18 09:26 Mode of Arrival: Ambulatory TRAVEL OUTSIDE OF THE [place] IN LAST 30 DAYS: No - HPI Patient complains to provider of: Other - 42-year-old female with a history of multiple mental health illnesses as well as previous aortic dissection which required repair at [facility] of her ascending aorta 2 years prior that presents for evaluation of pain in her back as well as her stomach which started this morning. Nothing has seemed to make it better or worse. She notes some nausea associated with it, denies any fevers or chills, denies any change in bladder or bowel movements. Has never had any pain like this in the past. - Related Data Allergies/Adverse Reactions: No Known Allergies Allergy (Verified 06/23/17 18:06) Past Medical History - General Information source: Patient - Social History Smoking Status: Never Smoker Family History: Hypertension, Other - Aortic dissection Patient has suicidal ideation: No Patient has homicidal ideation: No - Past Medical History Cardiac Medical History: Reports: Hx Heart Attack, Hx Hypertension Neurological Medical History: Reports: Hx Migraine Renal/ Medical History: Denies: Hx Peritoneal Dialysis GI Medical History: Reports: Hx Gastroesophageal Reflux Disease Past Surgical History: Reports: Hx Abdominal Surgery - hernia repair, Hx Cardiac Surgery - aortic dissection repair 01/18/16, Hx Tonsillectomy - Immunizations Hx Diphtheria, Pertussis, Tetanus Vaccination: Yes - unk Review of Systems - Review of Systems -: Yes All other systems reviewed and negative Physical Exam - Vital signs Vitals: Temp Pulse Resp BP Pulse Ox 98.6 F 74 16 143/83 H 98 01/23/18 08:25 01/23/18 08:25 01/23/18 08:25 01/23/18 08:25 01/23/18 08:25 - General General appearance: Alert, Anxious In distress: Mild - HEENT Head: Normocephalic Eyes: Normal Conjunctiva: Normal Cornea: Normal Extraocular movements intact: Yes Eyelashes: Normal Pupils: PERRL - Respiratory Respiratory status: No respiratory distress Chest status: Nontender Breath sounds: Normal Chest palpation: Normal - Cardiovascular Rhythm: Regular Heart sounds: Normal auscultation Murmur: No - Abdominal Inspection: Normal Distension: No distension Tenderness: Nontender - Back Back: Normal - Extremities General upper extremity: Normal inspection, Nontender, Normal strength, Normal temperature General lower extremity: Normal inspection, Nontender, Normal strength, Normal temperature - Neurological Neuro grossly intact: Yes Cognition: Normal Orientation: AAOx4 [place] Coma Scale Eye Opening: Spontaneous Aj Coma Scale Verbal: Oriented [place] Coma Scale Motor: Obeys Commands Aj Coma Scale Total: 15 Speech: Normal Cranial nerves: Normal Cerebellar coordination: Normal Motor strength normal: LUE, RUE, LLE, RLE - Psychological Associated symptoms: Normal affect Course - Re-evaluation Re-evalutation: 01/23/18 16:49 42-year-old female that presented from triage with labs already drawn for evaluation of abdominal pain. Given that this 42-year-old female has a known history of an aortic dissection which extends from her aortic root through her iliac arteries have a concern that this may be underlying cause of her pain. Labs through triage demonstrate that this patient does not have any obvious abnormalities such as LFT increase or creatinine increased, she has had intense abdominal pain which has not improved despite receiving morphine through triage. On examination her abdominal exam is benign. We will plan for CT of the aorta for possible dissection or injury. Patient at this time has a heart rate which is approximately 16 a blood pressure of 120 systolic therefore do not believe the need for any vasoactive medications is present. CT of the abdomen and pelvis demonstrate this is patient's aorta does continue to have a dissection, has worsening dissection involving what appears to be the SMA as well as a false lumen now supplying blood to the SMA, potentially representing this patient's cause of pain is low level bowel ischemia as a result of her compromised flow. Reassessed the patient emergently, at this time she is hemodynamically stable with a heart rate of approximately 54, her blood pressure is 120 systolic, she is in pain she has received Dilaudid 2 mg for her pain is only helped slightly. Emergently called transfer center at [facility], they note that this patient should receive intensive care unit level care and undergo transfer. Patient's heart rate at this time is approximately 62 therefore initiated treatment with esmolol to reduce patient's heart rate. Also administer Dilaudid for pain control. Patient's blood pressure after discussing her case and transfer increased from the 120 to the 130 systolic range as such administered order for hydralazine 10 mg single dose however at this time transport team is present. Her blood pressure improved after administration of analgesia will plan for dose of antiemetic and plan for patient undergo emergent transfer to [facility] for further management and stabilization. At the time of transport she was hemodynamically stable. - Vital Signs Vital signs: Temp Pulse Resp BP Pulse Ox 98.6 F 74 18 128/99 H 96 01/23/18 08:25 01/23/18 08:25 01/23/18 16:31 01/23/18 16:31 01/23/18 16:31 - Laboratory Result Diagrams: 01/23/18 10:50 01/23/18 10:50 Critical Care Note - Critical Care Note Total time excluding time spent on procedures (mins): 35 Discharge - Discharge Clinical Impression: Aortic dissection Qualifiers: Aortic location: thoracoabdominal aorta Qualified Code(s): I71.03 - Dissection of thoracoabdominal aorta Abdominal pain Qualifiers: Abdominal location: unspecified location Qualified Code(s): R10.9 - Unspecified abdominal pain Back pain Qualifiers: Back pain location: thoracic back pain Chronicity: acute Back pain laterality: unspecified Qualified Code(s): M54.6 - Pain in thoracic spine Condition: Serious Disposition: [facility] Referrals: AASHSIH BASS MD [Primary Care Provider] - Follow up as needed
[2018-01-23 16:33] VITALS: BP 128/99
== END 2018-01-23 16:45 | disposition short-term general hospital (02) ==
LOC: ER 08:10
DX: I71.03 Dissection of thoracoabdominal aorta (principal); M54.6 Pain in thoracic spine; R10.9 Unspecified abdominal pain; R07.9 Chest pain, unspecified; I10 Essential (primary) hypertension; I25.2 Old myocardial infarction
CPT/HCPCS: 93005; 96376; 99291; 96375; 96365; 36415; 82553; 82550; 84702; 83690; 85025; 80053; 81001; 84484; 71045; 74174; 93010; J2270; J1170; J3490; J2405